=== PATIENT | male | born 1950 | race Caucasian/White ===

== ENCOUNTER 2016-08-10 03:18 | Emergency (ER) | payer OTHER ==
[~2016-08-10] VITALS: Ht 180.3 cm; Wt 93.4 kg
[~2016-08-10 03:18] MED LIST: ALBUTEROL SULF8.5 GM INH; AMOXICILLIN500 MG ORAL; ANTIVERT25 MG ORAL; ASPIRIN325 MG PO; ASPIRIN81 MG ORAL; AUGMENTIN 500M500 MG PO; COGENTIN1 MG PO; COUMADIN5 MG PO; FAMOTIDINE20 MG ORAL; FERROUS SULFAT325 MG PO; FIORICET1 EA PO; FISH OIL300 M1 PO; GENTAK5 ML BOTH EYES; Iron; LIBRIUM10 MG ORAL; LIPITOR80 MG ORAL; NEOSPORIN OINT30 GM EXT; NORCO 5-325 TA1 EACH ORAL; NORCO 5-325 TA1 EACH PO; OMEPRAZOLE40 M1 ORAL; ONDANSETRON ODT4 MG ORAL; PEPCID AC10 MG PO; PEPCID20 MG ORAL; PEPCID40 MG PO; PRILOSEC20 MG ORAL; PRILOSEC20 MG PO; PRILOSEC40 MG PO; PROAIR HFA8.5 GM INH; RANITIDINE HCL150 MG ORAL; TYLENOL325 MG ORAL; VICODIN 5-3001 EACH ORAL; VICODIN 5-5001 EACH PO; Warfarin RX monitoring MISC; ZANTAC150 MG ORAL; ZOFRAN ODT4 MG ORAL; [UNRECOGNIZED DRUG - OTHER] PO; pepcid; stelazine
[2016-08-10] MEDS ORDERED: XARELTO10 MG ORAL (03:31)
--- NOTE | 2016-08-10 04:07 | Emergency Room Report ---
History of Present Illness General Chief Complaint: Medication Refill Source: Patient Present Illness HPI Is a 66-year-old male well-known to me. He has a history of of her hernia, COPD , previous blood clot and also chronic pain. He presents with chief complaint of feeding his blood thinner [facility] and need to be a blood thinner. He said his unit secy and integument his dinner tonight. He has no other complaint. No nausea no vomiting. No fever or chills. No short of breath. Allergies: Coded Allergies: FLUPHENAZINE (Unverified Allergy, Unknown, 07/06/15) FLUPHENAZINE ENANTHATE (Verified Allergy, Unknown, 08/10/16) FLUPHENAZINE HCL (Verified Allergy, Unknown, 08/10/16) HALOPERIDOL (Verified Allergy, Unknown, 08/10/16) HALOPERIDOL LACTATE (Verified Allergy, Unknown, 11/18/14) IBUPROFEN (Verified Allergy, Unknown, 11/18/14) NIACIN (Unverified Allergy, Unknown, 07/06/15) Patient History Past Medical History: see triage record, old chart reviewed, psych hx Past Surgical History: other Pertinent Family History: other Social History: Reports: smoking Immunizations: other Reviewed Nursing Documentation: PMH: Agreed, PSxH: Agreed Nursing Documentation-PMH Hx Cardiac Problems: Yes Hx Hypertension: Yes Hx Asthma: No Hx COPD: No Hx Diabetes: No Hx Cancer: Yes - lung cx, stomach cx Hx Dialysis: No Hx Neurological Problems: Yes - migraine headaches Hx Cerebrovascular Accident: No Hx Seizures: Yes Review of Systems Eye: Denies: blurred vision, eye pain ENT: Denies: ear pain, nose congestion, throat swelling Respiratory: Denies: cough, shortness of breath Cardiovascular: Denies: chest pain, palpitations Gastrointestinal: Denies: abdominal pain, diarrhea, nausea, vomiting Musculoskeletal: Denies: back pain, joint pain Skin: Denies: rash Neurological: Denies: headache, numbness Endocrine: Denies: increased thirst, increased urine Hematologic/Lymphatic: Denies: easy bruising All Other Systems: negative except mentioned in HPI Physical Exam Vital Signs Date Time Temp Pulse Resp B/P Pulse Ox O2 Delivery O2 Flow Rate FiO2 08/10/16 03:23 98.2 83 16 138/95 99 vitals normal Sp02 EP Interpretation: reviewed, normal General Appearance: well appearing, no apparent distress, alert Head: normocephalic, atraumatic Eyes: bilateral eye EOMI, bilateral eye PERRL ENT: hearing grossly normal, normal pharynx Neck: full range of motion, supple, no meningismus Respiratory: chest non-tender, lungs clear, normal breath sounds Cardiovascular #1: regular rate, rhythm, no murmur Gastrointestinal: normal bowel sounds, non tender, no mass, no organomegaly, no bruit, non-distended Musculoskeletal: back normal, gait/station normal, normal range of motion Psychiatric: mood/affect normal Skin: warm/dry Medical Decision Making Diagnostic Impression: Primary Impression: Encounter for medication refill ER Course Patient presents with chief complaint of needing blood thinner. He's been here several times and his INR has always been subtherapeutic or normal. I see no need for administration of Coumadin right now. He can followup to be done by his unit secy/family at the [facility]. We'll discharge home. Last Vital Signs Date Time Temp Pulse Resp B/P Pulse Ox O2 Delivery O2 Flow Rate FiO2 08/10/16 03:23 98.2 83 16 138/95 99 Status: improved Disposition: HOME, SELF-CARE Condition: Stable Patient Instructions: Medicine Refill at the Emergency Department Additional Instructions: Go to your DrPreet for your Coumadin/blood thinner. Take your medication. All of as scheduled. Return if worse. ALPESH CALDWELL M.D. Aug 10, 2016 04:07
[2016-08-10 04:23] VITALS: BP 138/95
== END 2016-08-10 04:15 | disposition home or self-care (01) ==
LOC: EMR 03:32
DX: Z76.0 Encounter for issue of repeat prescription (principal); I10 Essential (primary) hypertension; Z85.118 Personal history of other malignant neoplasm of bronchus and lung; Z85.028 Personal history of other malignant neoplasm of stomach; F17.200 Nicotine dependence, unspecified, uncomplicated; Z88.6 Allergy status to analgesic agent; Z88.8 Allergy status to other drugs, medicaments and biological substances
CPT/HCPCS: 99282

== ENCOUNTER 2016-08-21 22:23 | Emergency (ER) | payer OTHER ==
[~2016-08-21] VITALS: Ht 180.3 cm; Wt 93.4 kg
[~2016-08-21 22:23] MED LIST changes: +XARELTO10 MG ORAL
[2016-08-21 22:40] VITALS: BP 130/62
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
[2016-08-21 22:52] VITALS: BP 136/68
== END 2016-08-21 22:55 | disposition home or self-care (01) ==
LOC: EMR 22:44
DX: M54.6 Pain in thoracic spine (principal); F22 Delusional disorders; I10 Essential (primary) hypertension; Z88.6 Allergy status to analgesic agent; Z88.8 Allergy status to other drugs, medicaments and biological substances; J44.9 Chronic obstructive pulmonary disease, unspecified; F20.9 Schizophrenia, unspecified; Z85.118 Personal history of other malignant neoplasm of bronchus and lung; Z85.028 Personal history of other malignant neoplasm of stomach
CPT/HCPCS: 99282

== ENCOUNTER 2016-09-02 00:27 | Emergency (ER) | payer OTHER ==
[~2016-09-02] VITALS: Ht 180.3 cm; Wt 93.4 kg
[2016-09-02 00:43] VITALS: BP 163/88
[2016-09-02] MEDS ORDERED: Acetaminophen 500mg (ES) tab ORAL ONE (00:45)
--- NOTE | 2016-09-02 00:50 | Emergency Room Report ---
History of Present Illness General Chief Complaint: Headache Source: Patient Present Illness HPI This is a 66-year-old male who is well-known to this ER. He also visit multiple ER is in that area. He presents with chief complaint of headache. He said he having a migraine. Throbbing in nature. 04/14. He said he needs [place]. Denies any other complaint. No nausea no vomiting. No chest pain. No fever or chills. Similar symptom in the past. Diffuse in nature. Allergies: Coded Allergies: FLUPHENAZINE (Unverified Allergy, Unknown, 07/06/15) FLUPHENAZINE ENANTHATE (Verified Allergy, Unknown, 08/10/16) FLUPHENAZINE HCL (Verified Allergy, Unknown, 08/10/16) HALOPERIDOL (Verified Allergy, Unknown, 08/10/16) HALOPERIDOL LACTATE (Verified Allergy, Unknown, 11/18/14) IBUPROFEN (Verified Allergy, Unknown, 11/18/14) NIACIN (Unverified Allergy, Unknown, 07/06/15) Patient History Past Medical History: see triage record, old chart reviewed, DM, HTN, psych hx Past Surgical History: other Pertinent Family History: other Social History: Reports: smoking Immunizations: other Reviewed Nursing Documentation: PMH: Agreed, PSxH: Agreed Nursing Documentation-PMH Hx Cardiac Problems: Yes Hx Hypertension: Yes Hx Asthma: No Hx COPD: No Hx Diabetes: No Hx Cancer: Yes - lung cx, stomach cx Hx Dialysis: No Hx Neurological Problems: Yes - migraine headaches Hx Cerebrovascular Accident: No Hx Seizures: Yes Review of Systems Eye: Denies: blurred vision, eye pain ENT: Denies: ear pain, nose congestion, throat swelling Respiratory: Denies: cough, shortness of breath Cardiovascular: Denies: chest pain, palpitations Gastrointestinal: Denies: abdominal pain, diarrhea, nausea, vomiting Musculoskeletal: Denies: back pain, joint pain Skin: Denies: rash Neurological: Reports: headache, Denies: numbness Endocrine: Denies: increased thirst, increased urine Hematologic/Lymphatic: Denies: easy bruising All Other Systems: negative except mentioned in HPI Physical Exam Vital Signs Date Time Temp Pulse Resp B/P Pulse Ox O2 Delivery O2 Flow Rate FiO2 09/02/16 00:40 97.2 96 18 163/88 97 Room Air vitals hypertension Sp02 EP Interpretation: reviewed, normal General Appearance: well appearing, no apparent distress, alert Head: normocephalic, atraumatic Eyes: bilateral eye EOMI, bilateral eye PERRL ENT: hearing grossly normal, normal pharynx Neck: full range of motion, supple, no meningismus Respiratory: chest non-tender, lungs clear, normal breath sounds Cardiovascular #1: regular rate, rhythm, no murmur Gastrointestinal: normal bowel sounds, non tender, no mass, no organomegaly, no bruit, non-distended Musculoskeletal: back normal, gait/station normal, normal range of motion Psychiatric: mood/affect normal Skin: warm/dry Medical Decision Making Diagnostic Impression: Primary Impression: Headache Qualified Codes: G44.209 - Tension-type headache, unspecified, not intractable Additional Impressions: Hypertension Qualified Codes: I10 - Essential (primary) hypertension Opioid dependence ER Course Patient with headache. He is here all the time with multiple different pain complaint. No evidence of meningitis, bleed, CVA or TIA. We'll discharge home. Last Vital Signs Date Time Temp Pulse Resp B/P Pulse Ox O2 Delivery O2 Flow Rate FiO2 09/02/16 00:43 97.2 82 18 163/88 97 Room Air Status: improved Disposition: HOME, SELF-CARE Condition: Stable Patient Instructions: General Headache Without Cause Additional Instructions: Followup with your DrPreet in 7 days. Return if worse. ALPESH CALDWELL M.D. Sep 02, 2016 00:50
== END 2016-09-02 01:05 | disposition home or self-care (01) ==
LOC: EMR 01:04
DX: R51 Headache (principal); I10 Essential (primary) hypertension; E11.9 Type 2 diabetes mellitus without complications; Z85.118 Personal history of other malignant neoplasm of bronchus and lung; Z85.028 Personal history of other malignant neoplasm of stomach; Z86.69 Personal history of other diseases of the nervous system and sense organs; F17.200 Nicotine dependence, unspecified, uncomplicated; Z88.8 Allergy status to other drugs, medicaments and biological substances; Z88.6 Allergy status to analgesic agent
CPT/HCPCS: 99283

== ENCOUNTER 2016-09-27 19:05 | Emergency (ER) | payer OTHER ==
[~2016-09-27] VITALS: Ht 180.3 cm; Wt 93.4 kg
[2016-09-27 19:22] VITALS: BP 127/74
[2016-09-27] MEDS ORDERED: Thiamine HCl 100 MG in D5W 55 ML IVPB STA (19:34)
[2016-09-27] MEDS ORDERED: DiphenhydrAMINE 50mg/ml Inj IVP ONE (19:45)
[2016-09-27] MEDS ORDERED: Metoclopramide 10mg/2ml Inj IVP ONE (19:45)
[2016-09-27] MEDS ORDERED: Thiamine HCl 100mg/ml Inj ONE (20:41)
[2016-09-27 21:11] LABS: TROPONIN I < 0.30 ng/mL (<=0.30)
[2016-09-27 21:12] LABS: ACETAMINOPHEN < 10 ug/mL (10-30); ALANINE AMINOTRANSFERASE 17 U/L (3-41); ALBUMIN/GLOBULIN RATIO 1.4 (1.0-2.7); ALCOHOL 44 mg/dL; ANION GAP 19 (5-15); ASPARTATE AMINO TRANSFERASE 25 U/L (5-40); CALCIUM 9.1 mg/dL (8.6-10.2); CARBON DIOXIDE 24 mEQ/L (20-30); CHLORIDE 95 mEQ/L (98-107); GLOMERULAR FILTRATION RATE > 60 mL/min (>60); HEMOLYSIS 4; LIPASE 34 U/L (< 60); POTASSIUM 3.9 mEQ/L (3.4-4.9); SODIUM 138 mEQ/L (135-145); TOTAL PROTEIN 7.1 g/dL (6.6-8.7)
[2016-09-27 21:16] LABS: REFLEX LACTIC ACID YES OR NO YES
[2016-09-27 21:25] LABS: BASOPHILS % (AUTO) 0.8 % (0.0-2.0); EOSINOPHILS % (AUTO) 2.6 % (0.0-3.0); LYMPHOCYTES % (AUTO) 14.7 % (20.0-45.0); MEAN CORPUSCULAR HEMOGLOBIN 23.3 PG (27.0-31.0); MEAN CORPUSCULAR HGB CONC 30.6 G/DL (32.0-36.0); MEAN CORPUSCULAR VOLUME 76 FL (80-99); NEUTROPHILS % (AUTO) 74.9 % (45.0-75.0); PLATELET COUNT 309 K/UL (150-450); RED BLOOD COUNT 4.48 M/UL (4.70-6.10); RED CELL DISTRIBUTION WIDTH 16.5 % (11.6-14.8); WHITE BLOOD COUNT 6.9 K/UL (4.8-10.8)
[2016-09-27 21:29] LABS: KETONES,URINE NEGATIVE (NEGATIVE); LEUKOCYTE ESTERASE ,URINE NEGATIVE (NEGATIVE); NITRITE,URINE NEGATIVE (NEGATIVE); PH,URINE 6 (4.5-8.0); PROTEIN,URINE NEGATIVE (NEGATIVE); UROBILINOGEN,URINE NORMAL MG/DL (0.0-1.0)
[2016-09-27 21:30] LABS: APPEARANCE,URINE CLEAR
[2016-09-27 21:46] VITALS: BP 128/84
--- NOTE | 2016-09-27 22:40 | Emergency Room Report ---
History of Present Illness General Chief Complaint: General Complaint Source: Patient, Medical Record Present Illness HPI The patient presents feeling like he is dying. He did drink a lot of alcohol last few days. He has chest pain vomiting some loose stools no fevers or chills. He's been seen here multiple times in the past with GERD and gastritis. He denies any seizures, vomiting, hematemesis, melena, dysuria, abdominal pain. He also denies any head trauma, extremity pain, swelling. The patient denies suicidal or homicidal ideation. He denies headache. He does feel some dizziness. Allergies: Coded Allergies: FLUPHENAZINE (Unverified Allergy, Unknown, 07/06/15) FLUPHENAZINE ENANTHATE (Verified Allergy, Unknown, 08/10/16) FLUPHENAZINE HCL (Verified Allergy, Unknown, 08/10/16) HALOPERIDOL (Verified Allergy, Unknown, 08/10/16) HALOPERIDOL LACTATE (Verified Allergy, Unknown, 11/18/14) IBUPROFEN (Verified Allergy, Unknown, 11/18/14) NIACIN (Unverified Allergy, Unknown, 07/06/15) Patient History Past Medical History: see triage record Social History: Reports: alcohol use, smoking Social History Narrative [place] Reviewed Nursing Documentation: PMH: Agreed, PSxH: Agreed Nursing Documentation-PMH Hx Cardiac Problems: Yes Hx Hypertension: Yes Hx Asthma: No Hx COPD: No Hx Diabetes: No Hx Cancer: Yes - lung cx, stomach cx Hx Dialysis: No Hx Neurological Problems: Yes - migraine headaches Hx Cerebrovascular Accident: No Hx Seizures: Yes Review of Systems All Other Systems: negative except mentioned in HPI Physical Exam Vital Signs Date Time Temp Pulse Resp B/P Pulse Ox O2 Delivery O2 Flow Rate FiO2 09/27/16 19:13 97.9 98 16 127/74 97 Room Air Sp02 EP Interpretation: reviewed, normal General Appearance: well appearing, no apparent distress, GCS 15 - eyes closed Head: normocephalic Eyes: bilateral eye PERRL, bilateral eye Scleral Injection ENT: moist mucus membranes Neck: supple Respiratory: chest non-tender, lungs clear, normal breath sounds Cardiovascular #1: regular rate, rhythm Cardiovascular #2: 2+ radial (R) Gastrointestinal: normal inspection, normal bowel sounds, non tender, no mass, non-distended Musculoskeletal: back normal, gait/station normal, normal range of motion Neurologic: alert, oriented x3, motor strength/tone normal, DTRs symmetric, sensory intact, normal gait, speech normal Psychiatric: mood/affect normal Skin: normal inspection, warm/dry Medical Decision Making Diagnostic Impression: Primary Impression: Abdominal pain Additional Impressions: Alcohol abuse Alcohol intoxication ER Course The patient presents after drinking alcohol and feeling ill. Differential includes acute intoxication, electrolyte imbalance, gastritis, peptic ulcer disease, GERD most others appear to is no evidence of head trauma. The patient will be treated with IV hydration and also Pepcid, Zofran. He'll also be given a GI cocktail. EKG, labs and chest x-ray will be obtained. EKG is unremarkable. Chest x-ray shows no infiltrates. Labs were remarkable for positive blood alcohol. The patient is improved after treatment. He was still complaining of chest pain however the GI cocktail he does be review ordered. He had relief after he got to us. The patient is stable for outpatient observation and treatment. Laboratory Tests Test 09/27/16 20:35 09/27/16 22:48 White Blood Count 6.9 K/UL (4.8-10.8) Red Blood Count 4.48 M/UL (4.70-6.10) L Hemoglobin 10.4 G/DL (14.2-18.0) L Hematocrit 34.1 % (42.0-52.0) L Mean Corpuscular Volume 76 FL (80-99) L Mean Corpuscular Hemoglobin 23.3 PG (27.0-31.0) L Mean Corpuscular Hemoglobin Concent 30.6 G/DL (32.0-36.0) L Red Cell Distribution Width 16.5 % (11.6-14.8) H Platelet Count 309 K/UL (150-450) Mean Platelet Volume 6.0 FL (6.5-10.1) L Neutrophils (%) (Auto) 74.9 % (45.0-75.0) Lymphocytes (%) (Auto) 14.7 % (20.0-45.0) L Monocytes (%) (Auto) 7.0 % (1.0-10.0) Eosinophils (%) (Auto) 2.6 % (0.0-3.0) Basophils (%) (Auto) 0.8 % (0.0-2.0) Prothrombin Time 10.0 SEC (9.30-11.50) Prothrombin Time INR 1.0 (0.9-1.1) PTT 27 SEC (23-33) Urine Color Pale yellow Urine Appearance Clear Urine pH 6 (4.5-8.0) Urine Specific [place] 1.010 (1.005-1.035) Urine Protein Negative (NEGATIVE) Urine Glucose (UA) 1+ (NEGATIVE) H Urine Ketones Negative (NEGATIVE) Urine Occult Blood Negative (NEGATIVE) Urine Nitrite Negative (NEGATIVE) Urine Bilirubin Negative (NEGATIVE) Urine Urobilinogen Normal MG/DL (0.0-1.0) Urine Leukocyte Esterase Negative (NEGATIVE) Sodium Level 138 mEQ/L (135-145) Potassium Level 3.9 mEQ/L (3.4-4.9) Chloride Level 95 mEQ/L (98-107) L Carbon Dioxide Level 24 mEQ/L (20-30) Anion Gap 19 (5-15) H Blood Urea Nitrogen 13 mg/dL (7-23) Creatinine 1.0 mg/dL (0.7-1.2) Estimate Glomerular Filtration Rate > 60 mL/min (>60) Glucose Level 156 mg/dL (74-106) H Lactic Acid Level 2.00 mmol/L (0.66-2.22) 1.20 mmol/L (0.66-2.22) Calcium Level 9.1 mg/dL (8.6-10.2) Total Bilirubin < 0.2 mg/dL (0.0-1.2) Aspartate Amino Transferase (AST) 25 U/L (5-40) Alanine Aminotransferase (ALT) 17 U/L (3-41) Alkaline Phosphatase 72 U/L (40-129) Total Creatine Kinase 519 U/L (38-174) H Troponin I < 0.30 ng/mL (<=0.30) Total Protein 7.1 g/dL (6.6-8.7) Albumin 4.2 g/dL (3.5-5.2) Globulin 2.9 g/dL Albumin/Globulin Ratio 1.4 (1.0-2.7) Lipase 34 U/L (< 60) Salicylates Level < 1 mg/dL (10-30) L Urine Opiates Screen Negative (NEGATIVE) Acetaminophen Level < 10 ug/mL (10-30) L Urine Barbiturates Screen Negative (NEGATIVE) Phencyclidine (PCP) Screen Negative (NEGATIVE) Urine Amphetamines Screen Negative (NEGATIVE) Urine Benzodiazepines Screen Negative (NEGATIVE) Urine Cocaine Screen Negative (NEGATIVE) Urine Marijuana (THC) Screen Negative (NEGATIVE) Serum Alcohol 44 mg/dL EKG Diagnostic Results Rate: normal Rhythm: NSR ST Segments: no acute changes Rhythm Strip Diag. Results EP Interpretation: yes Rhythm: NSR, no PVC's, no ectopy Chest X-Ray Diagnostic Results EP Interpretation: Yes Findings: no consolidation, no effusion, no pneumothorax, no acute cardiopulmonary disease, other - double density Number of Views: 1 Last Vital Signs Date Time Temp Pulse Resp B/P Pulse Ox O2 Delivery O2 Flow Rate FiO2 09/28/16 00:58 97.9 87 21 126/77 95 Room Air 74 Status: improved Disposition: HOME, SELF-CARE Condition: Improved Scripts Acetaminophen (Tylenol) 325 Mg Tablet 650 MG ORAL Q6H Y for Prn Pain/Headache/Temp > 101, #30 TAB 0 Refills Prov: Bi Marti M.D. 09/28/16 Mag Hydrox/Al Hydrox/Simeth (MAALOX MAXIMUM STRENGTH SUSP) 355 Ml Oral.susp 30 ML PO Q6HR, #355 ML Prov: Bi Marti M.D. 09/28/16 Famotidine (PEPCID) 20 Mg Tablet 20 MG ORAL DAILY, #30 TAB 0 Refills Prov: Bi Marti M.D. 09/28/16 Referrals: NOT CHOSEN AMANDA/,REFERRING (PCP) Bi Marti M.D. Sep 27, 2016 22:40
[2016-09-27] MEDS ORDERED: GI Cocktail 120ml ORAL STA (22:42)
[2016-09-27 23:09] VITALS: BP 126/77
[2016-09-27] MEDS ORDERED: Mylanta II UD 30ml ORAL ONE (23:15)
[2016-09-27] MEDS ORDERED: Lidocaine 2% Visc 15ml soln ORAL ONE (23:15)
[2016-09-27] MEDS ORDERED: Dicyclomine HCl 10mg/5ml oral soln ORAL ONE (23:15)
[2016-09-28] MEDS ORDERED: MAALOX MAXIMUM355 M1 PO (00:17)
[2016-09-28] MEDS ORDERED: PEPCID20 MG ORAL (00:17)
[2016-09-28] MEDS ORDERED: TYLENOL325 MG ORAL (00:17)
[2016-09-28 00:57] VITALS: BP 138/90
[2016-09-28 00:58] VITALS: BP 126/77
--- NOTE | 2016-09-28 11:13 | Diagnostic Imaging Report ---
Indication: Chest pain Technique: One view of the chest Comparison: 07/13/2016 Findings: Large retrocardiac opacity is again demonstrated, previously demonstrated to represent a large hiatal hernia. Lungs and pleural spaces are clear. Heart size is borderline enlarged Impression: No acute process Borderline cardiomegaly Large hiatal hernia This agrees with the preliminary interpretation provided by the emergency room physician
--- NOTE | 2016-09-29 03:01 | Cardiology Report ---
APPROVED REPORT EKG Measurement Heart [id number] Normal sinus rhythm Normal ECG
== END 2016-09-28 00:59 | disposition home or self-care (01) ==
LOC: EMR 20:07
DX: R10.9 Unspecified abdominal pain (principal); I10 Essential (primary) hypertension; F17.200 Nicotine dependence, unspecified, uncomplicated; F10.129 Alcohol abuse with intoxication, unspecified; Z85.118 Personal history of other malignant neoplasm of bronchus and lung; R07.9 Chest pain, unspecified; Z85.028 Personal history of other malignant neoplasm of stomach
CPT/HCPCS: 36415; 71010; 80053; 80300; 81003; 82550; 83605; 83690; 84484; 85025; 85610; 85730; 93005; 96360; 96361; 96374; 96375; 99284; G0480; J1200; J2405; J2765; 80329

== ENCOUNTER 2016-10-07 18:47 | Emergency (ER) | payer OTHER ==
[~2016-10-07] VITALS: Ht 180.3 cm; Wt 93.4 kg
[~2016-10-07 18:47] MED LIST changes: +MAALOX MAXIMUM355 M1 PO
[2016-10-07 19:04] VITALS: BP 128/71
--- NOTE | 2016-10-07 19:25 | Emergency Room Report ---
History of Present Illness General Chief Complaint: General Complaint Source: Patient Present Illness HPI 66-year-old male presents emergency department complaining of left-sided chest pain that radiates to the left arm x2 hours constant in nature. Patient also reports intermittent dizziness upon standing too quickly and mild shortness of breath. Patient states he has a history of bronchitis, PEs for which she takes a relative for. She states that he has had episodes of dizziness in the past and that he also has a history of high blood pressure at that on occasion due to his medications will drop low. She does not know the name of the anti- hypertensive medication that he takes. Patient denies recent fall or head injury patient reports episodes of vomiting today denies blood in the vomit. Patient denies abdominal pain, he denies fevers and reports chills. Denies CP, Palpitations, LOC, AMS, dizziness, Changes in Vision, Sensation, paresthesias, or a sudden severe headache. Allergies: Coded Allergies: FLUPHENAZINE (Unverified Allergy, Unknown, 07/06/15) FLUPHENAZINE ENANTHATE (Verified Allergy, Unknown, 08/10/16) FLUPHENAZINE HCL (Verified Allergy, Unknown, 08/10/16) HALOPERIDOL (Verified Allergy, Unknown, 08/10/16) HALOPERIDOL LACTATE (Verified Allergy, Unknown, 11/18/14) IBUPROFEN (Verified Allergy, Unknown, 11/18/14) NIACIN (Unverified Allergy, Unknown, 07/06/15) Patient History Past Medical History: see triage record Past Surgical History: none Pertinent Family History: none Immunizations: UTD Reviewed Nursing Documentation: PMH: Agreed, PSxH: Agreed Nursing Documentation-PMH Past Medical History: No History, Except For Hx Cardiac Problems: Yes Hx Hypertension: Yes Hx Asthma: No Hx COPD: No Hx Diabetes: No Hx Cancer: Yes - lung (lobectomy) stomach Hx Gastrointestinal Problems: Yes - hiatal hernia (inoperable) Hx Dialysis: No History Of Psychiatric Problem: Yes - PTSD schizophrenia Hx Neurological Problems: Yes - migraine headaches Hx Cerebrovascular Accident: No Hx Seizures: Yes Review of Systems All Other Systems: negative except mentioned in HPI Physical Exam Vital Signs Date Time Temp Pulse Resp B/P Pulse Ox O2 Delivery O2 Flow Rate FiO2 10/07/16 19:02 98.2 88 16 128/71 100 Room Air Sp02 EP Interpretation: reviewed, normal General Appearance: no apparent distress, alert, GCS 15, non-toxic Head: normocephalic, atraumatic Eyes: bilateral eye PERRL, bilateral eye normal inspection ENT: hearing grossly normal, normal pharynx, no angioedema, normal voice Neck: full range of motion, supple/symm/no masses Respiratory: chest non-tender, lungs clear, normal breath sounds, speaking full sentences, wheezing - scant expiratory wheezez Cardiovascular #1: regular rate, rhythm, no edema, gallop/S4 Cardiovascular #2: 2+ dorsalis pedis (R), 2+ dorsalis pedis (L) Gastrointestinal: normal bowel sounds, non tender, soft, no guarding, no rebound Rectal: deferred Genitourinary: normal inspection, no CVA tenderness Musculoskeletal: back normal, gait/station normal, normal range of motion, non- tender, no calf tenderness Neurologic: alert, oriented x3, responsive, motor strength/tone normal, sensory intact, cerebellar normal, normal gait, speech normal, no pronator, other - negative Rhomberg Psychiatric: judgement/insight normal, memory normal, mood/affect normal, no suicidal/homicidal ideation Skin: normal color, no rash, warm/dry, well hydrated Lymphatic: no adenopathy Medical Decision Making PA Attestation Dr. Peralta is my supervising Physician whom patient management has been discussed with. Diagnostic Impression: Primary Impression: Bronchitis Additional Impression: Acute gastritis ER Course 66-year-old male presents emergency department complaining of left-sided chest pain that radiates to the left arm x2 hours constant in nature. Patient also reports intermittent dizziness upon standing too quickly and mild shortness of breath. Patient states he has a history of bronchitis, PEs for which she takes a relative for. he states that he has had episodes of dizziness in the past and that he also has a history of high blood pressure at that on occasion due to his medications will drop low. he does not know the name of the anti- hypertensive medication that he takes. Patient denies recent fall or head injury patient reports episodes of vomiting today denies blood in the vomit. Patient denies abdominal pain, he denies fevers and reports chills. Denies CP, Palpitations, LOC, AMS, dizziness, Changes in Vision, Sensation, paresthesias, or a sudden severe headache. Ddx considered but are not limited to RI, pneumonia, contusion, costochondritis , bronchitis, PE, ACS, Shoulder strain, Chest wall contusion. aortic dissection. Vital signs: are WNL, pt. is afebrile H&PE are most consistent with bronchitis will do EKG, and r/o dehydration. ORDERS: - EK BPM NSR with prolonged QT, RBB, no acute ST changes- per interpretation by Dr. Peralta. -Orthostatic VS: Negative Orthostatics : Laying : 170/85 HR is 106, Sittin/91 HR is 82, and Standin/88 HR is 87. ED INTERVENTIONS: - Albuterol Nebulized -10mg Reglan PO DISCHARGE: At this time pt. is stable for d/c to home. Will provide printed patient care instructions, and any necessary prescriptions. Care plan and follow up instructions have been discussed with the patient prior to discharge. EKG Diagnostic Results Rate: normal - 82 Rhythm: NSR ST Segments: no acute changes ASA given to the pt in ED: No PA Scribe Text prolonged QT, RBB per interpretation by Dr. Peralta. Last Vital Signs Date Time Temp Pulse Resp B/P Pulse Ox O2 Delivery O2 Flow Rate FiO2 10/07/16 19:02 98.2 88 16 128/71 100 Room Air Disposition: HOME, SELF-CARE Condition: Stable Scripts Metoclopramide Hcl* (REGLAN*) 10 Mg Tablet 10 MG ORAL THREE TIMES A DAY for 2 Days, #6 TAB Prov: Chinyere Amaya 10/07/16 Albuterol Sulfate* (ALBUTEROL SULFATE MDI*) 8.5 Gm Hfa.aer.ad 2 PUFF INH Q3H, #1 INH 0 Refills Prov: Chinyere Amaya 10/07/16 Patient Instructions: Acute Bronchitis, [id number] Additional Instructions: Take medications as directed. Follow up with PCP in 3-5 days Return sooner to ED if new symptoms occur, or current symptoms become worse. - Please note that this Emergency Department Report was dictated using [employer] technology software, occasionally this can lead to erroneous entry secondary to interpretation by the dictation equipment. Chinyere Amaya Oct 07, 2016 19:25
[2016-10-07] MEDS ORDERED: Albuterol ud Inhalation HHN ONE (20:00)
[2016-10-07] MEDS ORDERED: Metoclopramide 10mg/10ml Liq ORAL ONE (20:00)
[2016-10-07 20:08] VITALS: BP 149/91
[2016-10-07 20:18] VITALS: BP 139/84
[2016-10-07] MEDS ORDERED: REGLAN10 MG ORAL (20:18)
[2016-10-07] MEDS ORDERED: ALBUTEROL SULF8.5 GM INH (20:18)
--- NOTE | 2016-10-12 16:13 | Cardiology Report ---
APPROVED REPORT EKG Measurement Heart [id number] Normal sinus rhythm Incomplete right bundle branch block Prolonged QT Abnormal ECG
== END 2016-10-07 20:18 | disposition home or self-care (01) ==
LOC: EMR 19:38
DX: J40 Bronchitis, not specified as acute or chronic (principal); K29.70 Gastritis, unspecified, without bleeding; F43.10 Post-traumatic stress disorder, unspecified; F20.9 Schizophrenia, unspecified; I10 Essential (primary) hypertension; Z85.118 Personal history of other malignant neoplasm of bronchus and lung; Z85.028 Personal history of other malignant neoplasm of stomach; Z88.6 Allergy status to analgesic agent; Z88.8 Allergy status to other drugs, medicaments and biological substances
CPT/HCPCS: 93005; 94640; 94664; 99284

== ENCOUNTER 2016-10-30 21:20 | Emergency (ER) | payer OTHER ==
[~2016-10-30] VITALS: Ht 180.3 cm; Wt 90.7 kg
[~2016-10-30 21:20] MED LIST changes: +REGLAN10 MG ORAL
[2016-10-30 23:10] VITALS: BP 130/82
[2016-10-30 23:18] LABS: BASOPHILS % (AUTO) 1.2 % (0.0-2.0); EOSINOPHILS % (AUTO) 1.7 % (0.0-3.0); LYMPHOCYTES % (AUTO) 19.8 % (20.0-45.0); MEAN CORPUSCULAR HEMOGLOBIN 22.5 PG (27.0-31.0); MEAN CORPUSCULAR HGB CONC 30.3 G/DL (32.0-36.0); MEAN CORPUSCULAR VOLUME 74 FL (80-99); MONOCYTES % (AUTO) 8.1 % (1.0-10.0); NEUTROPHILS % (AUTO) 69.2 % (45.0-75.0); PLATELET COUNT 291 K/UL (150-450); RED BLOOD COUNT 4.34 M/UL (4.70-6.10); WHITE BLOOD COUNT 5.9 K/UL (4.8-10.8)
[2016-10-30 23:41] LABS: ANION GAP 19 (5-15); CALCIUM 9.1 mg/dL (8.6-10.2); CARBON DIOXIDE 24 mEQ/L (20-30); CHLORIDE 100 mEQ/L (98-107); GLOMERULAR FILTRATION RATE > 60 mL/min (>60); HEMOLYSIS 1; SODIUM 143 mEQ/L (135-145); TROPONIN I < 0.30 ng/mL (<=0.30)
[2016-10-31] VITALS: BP 128/84
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
== END 2016-10-31 | disposition home or self-care (01) ==
LOC: EMR 22:02
DX: R53.1 Weakness (principal); R07.89 Other chest pain; I10 Essential (primary) hypertension; Z85.118 Personal history of other malignant neoplasm of bronchus and lung
CPT/HCPCS: 36415; 80048; 84484; 85025; 99283

== ENCOUNTER 2016-12-21 06:04 | Emergency (ER) | payer OTHER ==
[~2016-12-21] VITALS: Ht 180.3 cm; Wt 86.2 kg
[2016-12-21 06:15] VITALS: BP 168/67
--- NOTE | 2016-12-21 06:41 | Emergency Room Report ---
History of Present Illness General Chief Complaint: Generalized Weakness Source: Patient, EMS Present Illness HPI Patient was brought in by paramedics Was found laying in the street Upon arrival the patient reports that he is hungry Denies any headache or visual changes there was initially a report of general weakness However he denies that Denies any vomiting or diarrhea Patient was upset that he was brought to the hospital Her porch last he remembers was going to sleep and then being brought to the hospital Denies any fall or trauma as any chest pain or shortness of breath Allergies: Coded Allergies: FLUPHENAZINE (Unverified Allergy, Unknown, 07/06/15) FLUPHENAZINE ENANTHATE (Verified Allergy, Unknown, 08/10/16) FLUPHENAZINE HCL (Verified Allergy, Unknown, 08/10/16) HALOPERIDOL (Verified Allergy, Unknown, 08/10/16) HALOPERIDOL LACTATE (Verified Allergy, Unknown, 11/18/14) IBUPROFEN (Verified Allergy, Unknown, 11/18/14) NIACIN (Unverified Allergy, Unknown, 07/06/15) Patient History Past Medical History: see triage record Pertinent Family History: none Reviewed Nursing Documentation: PMH: Agreed, PSxH: Agreed Nursing Documentation-PMH Hx Hypertension: Yes Hx Asthma: No Hx COPD: No Hx Diabetes: No Hx Cancer: Yes - lung (lobectomy) stomach Hx Gastrointestinal Problems: Yes - hiatal hernia (inoperable) Hx Dialysis: No Hx Neurological Problems: Yes - migraine headaches Hx Cerebrovascular Accident: No Hx Seizures: Yes Review of Systems All Other Systems: negative except mentioned in HPI Physical Exam Vital Signs Date Time Temp Pulse Resp B/P Pulse Ox O2 Delivery O2 Flow Rate FiO2 12/21/16 06:08 98.1 90 18 151/78 98 Room Air Sp02 EP Interpretation: reviewed, normal General Appearance: no apparent distress Head: normocephalic, atraumatic Eyes: bilateral eye EOMI, bilateral eye PERRL ENT: hearing grossly normal, normal pharynx, TMs + canals normal, uvula midline Neck: full range of motion, supple, no meningismus, no bony tend Respiratory: lungs clear, normal breath sounds, no rhonchi, no respiratory distress, no retraction, no accessory muscle use Cardiovascular #1: normal peripheral pulses, regular rate, rhythm, no edema, no gallop, no JVD, no murmur Gastrointestinal: normal bowel sounds, non tender, soft, no mass, no organomegaly, non-distended, no guarding, no hernia, no pulsatile mass, no rebound Musculoskeletal: normal inspection Neurologic: oriented x3, responsive, 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 as tested, motor strength/ tone normal, sensory intact Psychiatric: mood/affect normal Skin: normal color, no rash, warm/dry, palpation normal Lymphatic: normal inspection, no adenopathy Medical Decision Making Diagnostic Impression: Primary Impression: Encounter for medical screening examination Additional Impression: Episode of generalized weakness ER Course At this time the patient is complaint free Hemodynamically stable Patient has recent blood work in the computer system I did not feel required repeat examination Patient asking teeth in the emergency room and resides at a boarding care facility that he will be transferred to [facility] Vital Signs Date Time Temp Pulse Resp B/P Pulse Ox O2 Delivery O2 Flow Rate FiO2 12/21/16 06:15 98.1 87 16 168/67 100 Room Air Status: improved Disposition: HOME, SELF-CARE Condition: Improved Additional Instructions: Patient is provided with the discharge instructions notified to follow up with primary doctor in the next 2-3 days otherwise return to the er with any worsening symptoms. Please note that this report is being documented using [employer] technology. This can lead to erroneous entry secondary to incorrect interpretation by the dictating instrument. COURTNEY CARVER D.O. December 21, 2016 06:41
[2016-12-21 07:51] VITALS: BP 154/92
[2016-12-21 09:40] VITALS: BP 154/92
== END 2016-12-21 08:00 | disposition home or self-care (01) ==
LOC: EDBD 06:04 → EDUNIT# 06:04 → EMR 06:40
DX: R53.1 Weakness (principal); Z13.89 Encounter for screening for other disorder; I10 Essential (primary) hypertension; K44.9 Diaphragmatic hernia without obstruction or gangrene; Z88.8 Allergy status to other drugs, medicaments and biological substances; Z88.6 Allergy status to analgesic agent
CPT/HCPCS: 99282

== ENCOUNTER 2017-04-02 09:48 | Inpatient (IN) | payer OTHER ==
[~2017-04-02] VITALS: Ht 175.3 cm; Wt 72.6 kg
[2017-04-02 09:50] VITALS: BP 152/88
[2017-04-02 10:16] LABS: BASOPHILS % (AUTO) 1.8 % (0.0-2.0); EOSINOPHILS % (AUTO) 2.8 % (0.0-3.0); LYMPHOCYTES % (AUTO) 13.8 % (20.0-45.0); MEAN CORPUSCULAR HEMOGLOBIN 26.7 PG (27.0-31.0); MEAN CORPUSCULAR HGB CONC 30.5 G/DL (32.0-36.0); MEAN CORPUSCULAR VOLUME 88 FL (80-99); MEAN PLATELET VOLUME 6.8 FL (6.5-10.1); MONOCYTES % (AUTO) 9.2 % (1.0-10.0); NEUTROPHILS % (AUTO) 72.4 % (45.0-75.0); PLATELET COUNT 266 K/UL (150-450); RED BLOOD COUNT 4.85 M/UL (4.70-6.10); RED CELL DISTRIBUTION WIDTH 16.9 % (11.6-14.8); WHITE BLOOD COUNT 6.2 K/UL (4.8-10.8)
[2017-04-02 10:33] LABS: ACETAMINOPHEN < 10 ug/mL (10-30); ALANINE AMINOTRANSFERASE 21 U/L (3-41); ALBUMIN/GLOBULIN RATIO 1.6 (1.0-2.7); ALCOHOL < 10 mg/dL; ANION GAP 15 (5-15); ASPARTATE AMINO TRANSFERASE 33 U/L (5-40); CARBON DIOXIDE 25 mEQ/L (20-30); CHLORIDE 104 mEQ/L (98-107); CREATININE 0.9 mg/dL (0.7-1.2); GLOMERULAR FILTRATION RATE > 60 mL/min (>60); HEMOLYSIS 55; POTASSIUM 4.6 mEQ/L (3.4-4.9); SODIUM 144 mEQ/L (135-145); TOTAL PROTEIN 7.3 g/dL (6.6-8.7); TROPONIN I < 0.30 ng/mL (<=0.30)
[2017-04-02 10:39] VITALS: BP 148/87
[2017-04-02 10:43] LABS: CKMB 11.3 ng/mL (< 6.7)
[2017-04-02] MEDS ORDERED: LORazepam Inj 2mg/ml 1ml IV ONE (10:45)
[2017-04-02 11:02] VITALS: BP 117/68
--- NOTE | 2017-04-02 11:18 | Diagnostic Imaging Report ---
Indication: Altered mental status Technique: Contiguous 5 mm thick transaxial imaging of the head obtained in a Siemens Sensation [address] scanner. Soft tissue and bone windows generated. Total Dose length Product (DLP): [address] Dose Index Volume (CTDIvol): 70.38, 0.15 mGy Comparison: none Findings: There is mild prominence of the ventricles, basal cisterns, and cerebral sulci consistent with atrophy. Mild, nonspecific, white matter hypoattenuation is noted throughout the brain consistent with chronic small vessel disease. There is no midline shift, edema, acute hemorrhage, mass effect, or abnormal extra-axial fluid collections. Bones and extra osseous soft tissues are unremarkable. Impression: No acute intracranial bleed, mass effect or edema. Mild atrophy of the brain. Nonspecific white matter hypoattenuation probably due to chronic small vessel disease. The CT scanner at [facility] is accredited by the [employer] and the scans are performed using dose optimization techniques as appropriate to a performed exam including Automatic Exposure control.
[2017-04-02 13:04] VITALS: BP 140/93
--- NOTE | 2017-04-02 13:20 | Consultation ---
History of Present Illness General Chief Complaint: Behavioral Complaint Present Illness HPI 68 yo male with hx of schizophrenia who appears to be homeless. the pt was sleepy and disheveled. the pt is disorganized and delusional. the pt stated that he lives at [facility]. the number was not a working number. the pt is calm and denied using drugs. He didn't reply when I asked in regards to Alcohol. the pt does not endorse si/hi. he may need placement/ Allergies: Coded Allergies: HALOPERIDOL (Verified Allergy, Unknown, 04/02/17) Medication History Miscellaneous Medications Unable to Obtain Medications (Unable To Obtain Meds), (Reported) Patient History History Provided By: Patient Healthcare decision maker Resuscitation status Advanced Directive on File Review of Systems Constitutional: Reports: malaise, weakness Psychiatric: Reports: prior hx, depressed feelings, emotional problems, hallucinations Physical Exam General Appearance: alert, lethargic, confused, thin Neurologic: alert, responsive, disoriented, depressed affect Last 24 Hour Vital Signs Date Time Temp Pulse Resp B/P (MAP) Pulse Ox O2 Delivery O2 Flow Rate FiO2 04/02/17 13:04 70 16 140/93 100 Room Air 04/02/17 11:02 81 16 117/68 100 Room Air 04/02/17 10:39 89 16 148/87 100 Room Air 04/02/17 09:50 97.0 16 152/88 100 Room Air 04/02/17 09:43 97.0 103 16 152/88 100 Room Air Intake and Output 04/02/17 04/03/17 19:00 07:00 Intake Total 0 ml Balance 0 ml Intake Oral 0 ml Laboratory Tests Test 04/02/17 10:00 04/02/17 10:50 White Blood Count 6.2 K/UL (4.8-10.8) Red Blood Count 4.85 M/UL (4.70-6.10) Hemoglobin 13.0 G/DL (14.2-18.0) L Hematocrit 42.5 % (42.0-52.0) Mean Corpuscular Volume 88 FL (80-99) Mean Corpuscular Hemoglobin 26.7 PG (27.0-31.0) L Mean Corpuscular Hemoglobin Concent 30.5 G/DL (32.0-36.0) L Red Cell Distribution Width 16.9 % (11.6-14.8) H Platelet Count 266 K/UL (150-450) Mean Platelet Volume 6.8 FL (6.5-10.1) Neutrophils (%) (Auto) 72.4 % (45.0-75.0) Lymphocytes (%) (Auto) 13.8 % (20.0-45.0) L Monocytes (%) (Auto) 9.2 % (1.0-10.0) Eosinophils (%) (Auto) 2.8 % (0.0-3.0) Basophils (%) (Auto) 1.8 % (0.0-2.0) Sodium Level 144 mEQ/L (135-145) Potassium Level 4.6 mEQ/L (3.4-4.9) Chloride Level 104 mEQ/L (98-107) Carbon Dioxide Level 25 mEQ/L (20-30) Anion Gap 15 (5-15) Blood Urea Nitrogen 17 mg/dL (7-23) Creatinine 0.9 mg/dL (0.7-1.2) Estimat Glomerular Filtration Rate > 60 mL/min (>60) Glucose Level 120 mg/dL (74-106) H Calcium Level 9.0 mg/dL (8.6-10.2) Total Bilirubin 0.6 mg/dL (0.0-1.2) Aspartate Amino Transf (AST/SGOT) 33 U/L (5-40) Alanine Aminotransferase (ALT/SGPT) 21 U/L (3-41) Alkaline Phosphatase 67 U/L (40-129) Total Creatine Kinase 547 U/L (38-174) H Creatine Kinase MB 11.3 ng/mL (< 6.7) H Creatine Kinase MB Relative Index 2.0 Troponin I < 0.30 ng/mL (<=0.30) Total Protein 7.3 g/dL (6.6-8.7) Albumin 4.5 g/dL (3.5-5.2) Globulin 2.8 g/dL Albumin/Globulin Ratio 1.6 (1.0-2.7) Salicylates Level < 1 mg/dL (10-30) L Acetaminophen Level < 10 ug/mL (10-30) L Serum Alcohol < 10 mg/dL Urine Opiates Screen Negative (NEGATIVE) Urine Barbiturates Screen Negative (NEGATIVE) Phencyclidine (PCP) Screen Negative (NEGATIVE) Urine Amphetamines Screen Negative (NEGATIVE) Urine Benzodiazepines Screen Negative (NEGATIVE) Urine Cocaine Screen Negative (NEGATIVE) Urine Marijuana (THC) Screen Negative (NEGATIVE) Height (Feet): 5 Height (Inches): 9.00 Weight (Pounds): 160 Assessment/Plan Status: not improved, unchanged Assessment/Plan Schizophrenia -risperdal 2mg qhs -admit for further treatment. Jose Rosenberg M.D. Apr 02, 2017 13:20
[2017-04-02 14:25] VITALS: BP 145/90
--- NOTE | 2017-04-02 14:46 | Emergency Room Report ---
History of Present Illness General Chief Complaint: Behavioral Complaint Source: Patient Present Illness HPI 67-year-old male presents ED for evaluation. Patient brought in by EMS. Patient is disheveled, rambling incoherently. Patient brought in by EMS and [employer]. Per EMS patient tried to walk into traffic. Patient denies any suicidal or homicidal ideation. unable to provide any additional history at this time. No other aggravating or relieving factors. Denies any other associated symptoms Allergies: Coded Allergies: FLUPHENAZINE (Unverified Allergy, Unknown, 07/06/15) FLUPHENAZINE ENANTHATE (Verified Allergy, Unknown, 08/10/16) FLUPHENAZINE HCL (Verified Allergy, Unknown, 08/10/16) HALOPERIDOL (Verified Allergy, Unknown, 08/10/16) HALOPERIDOL LACTATE (Verified Allergy, Unknown, 11/18/14) IBUPROFEN (Verified Allergy, Unknown, 11/18/14) NIACIN (Unverified Allergy, Unknown, 07/06/15) Patient History Past Medical History: none Past Surgical History: none Pertinent Family History: none Social History: Denies: smoking, alcohol use, drug use Immunizations: UTD Reviewed Nursing Documentation: PMH: Agreed, PSxH: Agreed Review of Systems All Other Systems: negative except mentioned in HPI Physical Exam Vital Signs Date Time Temp Pulse Resp B/P (MAP) Pulse Ox O2 Delivery O2 Flow Rate FiO2 04/02/17 09:43 97.0 103 16 152/88 100 Room Air Sp02 EP Interpretation: reviewed, normal General Appearance: no apparent distress, alert, GCS 15, non-toxic Head: normocephalic, atraumatic Eyes: bilateral eye normal inspection, bilateral eye PERRL ENT: hearing grossly normal, normal pharynx, no angioedema, normal voice Neck: full range of motion, supple/symm/no masses Respiratory: chest non-tender, lungs clear, normal breath sounds, speaking full sentences Cardiovascular #1: regular rate, rhythm, no edema Cardiovascular #2: 2+ carotid (R), 2+ carotid (L), 2+ radial (R), 2+ radial (L) , 2+ dorsalis pedis (R), 2+ dorsalis pedis (L) Gastrointestinal: normal bowel sounds, non tender, soft, non-distended, no guarding, no rebound Rectal: deferred Genitourinary: normal inspection, no CVA tenderness Musculoskeletal: back normal, gait/station normal, normal range of motion, non- tender, calf tenderness Neurologic: alert, motor strength/tone normal, sensory intact, speech normal Psychiatric: no suicidal/homicidal ideation Reflexes: 3+ bicep (R), 3+ bicep (L), 3+ tricep (R), 3+ tricep (L), 3+ knee (R) , 3+ knee (L) Skin: normal color, no rash, warm/dry, well hydrated Lymphatic: no adenopathy Medical Decision Making Diagnostic Impression: Primary Impression: Schizophrenia Qualified Codes: F20.9 - Schizophrenia, unspecified Additional Impression: Gravely disabled ER Course Hospital Course 67-year-old male presents to ED with altered mental status. speaking incohrently. running into traffic Differential diagnoses include: Post ictal, psychosis, alcohol toxicity, intracranial injury Clinical course She placed on stretcher. On nuclear monitoring technician. After initial history and physical ordered labs, IV fluids, EKG, CT brain. Labs reviewed-electrolytes okay, no leukocytosis, hemoglobin/hematocrit stable, tox panel negative CT brain shows no acute pathology EKG - NSR, no acute ischemic changes interpreted by me [employer] place patient on 5150 hold for danger to himself. Patient seen by Dr. Rosenberg. Agreed that patient is not suicidal but is gravely disabled and needs placement case discussed with Dr. Bhatti and he agreed to accept the patient to his service for further care and support. Dr Rosenberg will consult i. I feel this is a highly complex case requiring extensive working including EKG/Rhythm strip, Xray/CT/US, Blood/urine lab work, repeat exams while in ED, and administration of strong opiates/narcotics for pain control, admission to hospital or close patient follow up. Diagnosis - schizophrenia, gravely disabled Admitted to floor in serious condition Labs Test 04/02/17 10:00 04/02/17 10:50 White Blood Count 6.2 K/UL (4.8-10.8) Red Blood Count 4.85 M/UL (4.70-6.10) Hemoglobin 13.0 G/DL (14.2-18.0) Hematocrit 42.5 % (42.0-52.0) Mean Corpuscular Volume 88 FL (80-99) Mean Corpuscular Hemoglobin 26.7 PG (27.0-31.0) Mean Corpuscular Hemoglobin Concent 30.5 G/DL (32.0-36.0) Red Cell Distribution Width 16.9 % (11.6-14.8) Platelet Count 266 K/UL (150-450) Mean Platelet Volume 6.8 FL (6.5-10.1) Neutrophils (%) (Auto) 72.4 % (45.0-75.0) Lymphocytes (%) (Auto) 13.8 % (20.0-45.0) Monocytes (%) (Auto) 9.2 % (1.0-10.0) Eosinophils (%) (Auto) 2.8 % (0.0-3.0) Basophils (%) (Auto) 1.8 % (0.0-2.0) Sodium Level 144 mEQ/L (135-145) Potassium Level 4.6 mEQ/L (3.4-4.9) Chloride Level 104 mEQ/L (98-107) Carbon Dioxide Level 25 mEQ/L (20-30) Anion Gap 15 (5-15) Blood Urea Nitrogen 17 mg/dL (7-23) Creatinine 0.9 mg/dL (0.7-1.2) Estimat Glomerular Filtration Rate > 60 mL/min (>60) Glucose Level 120 mg/dL (74-106) Calcium Level 9.0 mg/dL (8.6-10.2) Total Bilirubin 0.6 mg/dL (0.0-1.2) Aspartate Amino Transf (AST/SGOT) 33 U/L (5-40) Alanine Aminotransferase (ALT/SGPT) 21 U/L (3-41) Alkaline Phosphatase 67 U/L (40-129) Total Creatine Kinase 547 U/L (38-174) Creatine Kinase MB 11.3 ng/mL (< 6.7) Creatine Kinase MB Relative Index 2.0 Troponin I < 0.30 ng/mL (<=0.30) Total Protein 7.3 g/dL (6.6-8.7) Albumin 4.5 g/dL (3.5-5.2) Globulin 2.8 g/dL Albumin/Globulin Ratio 1.6 (1.0-2.7) Salicylates Level < 1 mg/dL (10-30) Acetaminophen Level < 10 ug/mL (10-30) Serum Alcohol < 10 mg/dL Urine Opiates Screen Negative (NEGATIVE) Urine Barbiturates Screen Negative (NEGATIVE) Phencyclidine (PCP) Screen Negative (NEGATIVE) Urine Amphetamines Screen Negative (NEGATIVE) Urine Benzodiazepines Screen Negative (NEGATIVE) Urine Cocaine Screen Negative (NEGATIVE) Urine Marijuana (THC) Screen Negative (NEGATIVE) EKG Diagnostic Results Rate: tachycardiac Rhythm: NSR ST Segments: no acute changes ASA given to the pt in ED: No Rhythm Strip Diag. Results EP Interpretation: yes Rhythm: NSR, no PVC's, no ectopy CT/MRI/US Diagnostic Results CT/MRI/US Diagnostic Results : Imaging Test Ordered: CT Head Impression no acute process Last Vital Signs Date Time Temp Pulse Resp B/P (MAP) Pulse Ox O2 Delivery O2 Flow Rate FiO2 04/02/17 14:25 67 16 145/90 100 Room Air 04/02/17 09:50 97.0 Status: improved Disposition: ADMITTED INPATIENT Condition: Serious Referrals: NON PHYSICIAN (PCP) CHAITANYA SANDERS M.D. Apr 02, 2017 14:46
[2017-04-02] MEDS ORDERED: Mylanta II UD 30ml ORAL PRN (15:00)
[2017-04-02] MEDS ORDERED: Miralax 17gm pkt ORAL PRN (15:00)
[2017-04-02] MEDS ORDERED: LORazepam Inj 2mg/ml 1ml IV PRN (15:00)
[2017-04-02] MEDS ORDERED: Morphine Sulfate 2mg/ml Inj IVP PRN (15:00)
[2017-04-02] MEDS ORDERED: Albuterol 90mcg Inhaler 8gm INH SCH (15:00)
[2017-04-02] MEDS ORDERED: Zolpidem 5mg tab ORAL PRN (15:00)
[2017-04-02 20:00] VITALS: BP 135/98
--- NOTE | 2017-04-03 15:23 | Diagnostic Imaging Report ---
APPROVED REPORT CPT Code: 94476 Present Symptoms Lower Extremity Pain: Right BILATERAL: Imaging reveals a patent deep venous system bilaterally. There is no evidence of thrombus within the femoral, popliteal or tibial segments. The greater saphenous veins are also within normal limits. Doppler indicates normal spontaneous flow within these segments.
--- NOTE | 2017-04-04 11:15 | Discharge Summary ---
Discharge Summary Hospital Course Date of Admission Apr 02, 2017 at 14:18 Date of Discharge Apr 02, 2017 at 21:20 Admitting Diagnosis AMS HPI Rodney Lopez is a 67 year old male who was admitted on Apr 02, 2017 at 14:18 for Altered Mental Status Hospital Course [id number] Discharge Discharge Disposition Patient left AMA Discharge Diagnoses: Meghan aVlverde NP Apr 04, 2017 11:15
== END 2017-04-02 21:20 | disposition left against medical advice (07) | DRG 885 ==
LOC: EDBD 09:48 → EMR 10:50 → EDBD 10:50 → EDUNIT# 10:50 → 4E 14:18 → EDBEDREQ 15:07 → 4W 18:45
DX: F20.9 Schizophrenia, unspecified (principal); Z59.0 Homelessness; R41.82 Altered mental status, unspecified; Z88.8 Allergy status to other drugs, medicaments and biological substances; Z88.6 Allergy status to analgesic agent
CPT/HCPCS: 36415; 70450; 80053; 80300; 80329; 82550; 82553; 84484; 85025; 93005; 93970; 99285

== ENCOUNTER 2017-09-26 22:10 | Inpatient (IN) | payer OTHER ==
[~2017-09-26] VITALS: Ht 177.8 cm; Wt 81.6 kg
[~2017-09-26 22:10] MED LIST changes: +UNOBMED
[2017-09-26 22:15] VITALS: BP 150/95
[2017-09-27] VITALS (8 sets, daily range): BP systolic 137–154; BP diastolic 66–91
[2017-09-27 00:04] LABS: BASOPHILS % (AUTO) 0.6 % (0.0-2.0); EOSINOPHILS % (AUTO) 0.8 % (0.0-3.0); HEMATOCRIT 40.3 % (42.0-52.0); HEMOGLOBIN 13.2 G/DL (14.2-18.0); LYMPHOCYTES % (AUTO) 14.8 % (20.0-45.0); MEAN CORPUSCULAR VOLUME 87 FL (80-99); MONOCYTES % (AUTO) 8.6 % (1.0-10.0); NEUTROPHILS % (AUTO) 75.2 % (45.0-75.0); PLATELET COUNT 249 K/UL (150-450); RED BLOOD COUNT 4.64 M/UL (4.70-6.10); WHITE BLOOD COUNT 6.4 K/UL (4.8-10.8)
[2017-09-27 00:05] LABS: ANION GAP 5 mmol/L (5-15); BLOOD UREA NITROGEN 19 mg/dL (7-18); CALCIUM 9.7 MG/DL (8.5-10.1); CARBON DIOXIDE 33 MMOL/L (21-32); CHLORIDE 104 MMOL/L (98-107); CREATININE 1.3 MG/DL (0.55-1.30); POTASSIUM 3.8 MMOL/L (3.5-5.1); SODIUM 141 MMOL/L (136-145)
[2017-09-27 00:09] LABS: ALANINE AMINOTRANSFERASE 47 U/L (12-78); ALBUMIN 3.9 G/DL (3.4-5.0); ALKALINE PHOSPHATASE 80 U/L (46-116); ASPARTATE AMINO TRANSFERASE 44 U/L (15-37); BILIRUBIN,TOTAL 0.7 MG/DL (0.2-1.0)
--- NOTE | 2017-09-27 00:28 | Emergency Room Report ---
History of Present Illness General Chief Complaint: Behavioral Complaint Source: Patient, Medical Record, EMS Present Illness HPI 59-year-old male, history of schizophrenia, brought in by EMS coming from his facility after suicidal or homicidal ideation. Patient is currently very disorganized, not giving clear history, rambling about nonsense. He reportedly told another resident that he was going to kill him. Patient currently disorganized and speaking to himself on 5150 Allergies: Coded Allergies: FLUPHENAZINE (Unverified Allergy, Unknown, 07/06/15) FLUPHENAZINE ENANTHATE (Verified Allergy, Unknown, 08/10/16) FLUPHENAZINE HCL (Verified Allergy, Unknown, 08/10/16) HALOPERIDOL (Verified Allergy, Unknown, 08/10/16) HALOPERIDOL LACTATE (Verified Allergy, Unknown, 11/18/14) IBUPROFEN (Verified Allergy, Unknown, 11/18/14) NIACIN (Unverified Allergy, Unknown, 07/06/15) Patient History Past Medical History: see triage record Past Surgical History: none Pertinent Family History: none Reviewed Nursing Documentation: PMH: Agreed, PSxH: Agreed Nursing Documentation-PMH Hx Hypertension: Yes Hx Asthma: No Hx Diabetes: No Hx Cancer: Yes - lung ca s/p resection, xrt and chemotherapy Hx Dialysis: No Hx Neurological Problems: Yes - MIGRAINE Hx Cerebrovascular Accident: No Hx Seizures: Yes Review of Systems All Other Systems: limited Physical Exam Vital Signs Date Time Temp Pulse Resp B/P (MAP) Pulse Ox O2 Delivery O2 Flow Rate FiO2 09/26/17 21:59 98.4 109 18 158/100 99 Room Air 98.4 Sp02 EP Interpretation: reviewed, normal General Appearance: other - Very disorganized male, agitated, not making sense Head: normocephalic, atraumatic Eyes: bilateral eye normal inspection, bilateral eye PERRL, bilateral eye EOMI ENT: normal ENT inspection, normal pharynx, normal voice, moist mucus membranes Neck: normal inspection, full range of motion, supple Respiratory: normal inspection, lungs clear, normal breath sounds, no respiratory distress, no retraction, no wheezing, speaking full sentences, chest symmetrical Cardiovascular #1: normal inspection, regular rate, rhythm, no edema, normal capillary refill Cardiovascular #2: 2+ radial (R), 2+ radial (L) Gastrointestinal: normal inspection, non tender, soft, non-distended, no guarding Genitourinary: no CVA tenderness Musculoskeletal: normal inspection, back normal, normal range of motion, non- tender Neurologic: alert, motor strength/tone normal, normal gait Psychiatric: other - delusional and disorganized Skin: normal inspection, normal color, no rash, warm/dry, well hydrated, normal turgor Medical Decision Making Diagnostic Impression: Primary Impression: Schizophrenia Additional Impression: Suicidal ideation ER Course 67-year-old male, homicidal ideation, paranoid, disorganized DDX: Likely psychiatric illness, rule out intoxication, rule out electrolyte disturbance. There is no history of any head trauma Plan: Obtain labs, ua, EKG ER course: Patient has been talking to himself during ED stay endorsing SI and HI given zyprexa Patient is medically clear for placement Signed out to Dr. Elizondo -67 yo M with schizophrenia, SI/HI ON HOLD pending placement Please note that this Emergency Department Report was dictated using [employer] worker technology software, occasionally this can lead to erroneous entry secondary to interpretation by the dictation equipment. EKG Diagnostic Results EP Interpretation: Yes Rate: normal Rhythm: NSR ST Segments: No acute changes ASA given to patient: No Laboratory Tests Test 09/26/17 23:30 09/27/17 01:45 White Blood Count 6.4 K/UL (4.8-10.8) Red Blood Count 4.64 M/UL (4.70-6.10) L Hemoglobin 13.2 G/DL (14.2-18.0) L Hematocrit 40.3 % (42.0-52.0) L Mean Corpuscular Volume 87 FL (80-99) Mean Corpuscular Hemoglobin 28.4 PG (27.0-31.0) Mean Corpuscular Hemoglobin Concent 32.7 G/DL (32.0-36.0) Red Cell Distribution Width 15.0 % (11.6-14.8) H Platelet Count 249 K/UL (150-450) Mean Platelet Volume 6.6 FL (6.5-10.1) Neutrophils (%) (Auto) 75.2 % (45.0-75.0) H Lymphocytes (%) (Auto) 14.8 % (20.0-45.0) L Monocytes (%) (Auto) 8.6 % (1.0-10.0) Eosinophils (%) (Auto) 0.8 % (0.0-3.0) Basophils (%) (Auto) 0.6 % (0.0-2.0) Sodium Level 141 MMOL/L (136-145) Potassium Level 3.8 MMOL/L (3.5-5.1) Chloride Level 104 MMOL/L (98-107) Carbon Dioxide Level 33 MMOL/L (21-32) H Anion Gap 5 mmol/L (5-15) Blood Urea Nitrogen 19 mg/dL (7-18) H Creatinine 1.3 MG/DL (0.55-1.30) Estimate Glomerular Filtration Rate 54.9 mL/min (>60) Glucose Level 102 MG/DL (74-106) Calcium Level 9.7 MG/DL (8.5-10.1) Total Bilirubin 0.7 MG/DL (0.2-1.0) Aspartate Amino Transferase (AST) 44 U/L (15-37) H Alanine Aminotransferase (ALT) 47 U/L (12-78) Alkaline Phosphatase 80 U/L (46-116) Total Protein 7.9 G/DL (6.4-8.2) Albumin 3.9 G/DL (3.4-5.0) Globulin 4.0 g/dL Albumin/Globulin Ratio 1.0 (1.0-2.7) Salicylates Level < 0.2 ug/mL (2.8-20) L Acetaminophen Level < 2 MCG/ML (10-30) L Serum Alcohol < 3 mg/dL Urine Color Yellow Urine Appearance Clear Urine pH 7 (4.5-8.0) Urine Specific [place] 1.015 (1.005-1.035) Urine Protein 2+ (NEGATIVE) H Urine Glucose (UA) Negative (NEGATIVE) Urine Ketones 2+ (NEGATIVE) H Urine Occult Blood Negative (NEGATIVE) Urine Nitrite Negative (NEGATIVE) Urine Bilirubin Negative (NEGATIVE) Urine Urobilinogen 1 MG/DL (0.0-1.0) H Urine Leukocyte Esterase 1+ (NEGATIVE) H Urine RBC 0 /HPF (0 - 0) Urine WBC 2-4 /HPF (0 - 0) Urine Squamous Epithelial Cells Few /LPF (NONE/OCC) Urine Bacteria Few /HPF (NONE) Urine Fine Granular Casts 0-2 /LPF (NONE) H Urine Coarse Granular Casts 0-2 /LPF (NONE) H Urine Mucus Moderate /LPF (NONE/OCC) H Urine Opiates Screen Negative (NEGATIVE) Urine Barbiturates Screen Negative (NEGATIVE) Phencyclidine (PCP) Screen Negative (NEGATIVE) Urine Amphetamines Screen Negative (NEGATIVE) Urine Benzodiazepines Screen Negative (NEGATIVE) Urine Cocaine Screen Negative (NEGATIVE) Urine Marijuana (THC) Screen Negative (NEGATIVE) Last Vital Signs Date Time Temp Pulse Resp B/P (MAP) Pulse Ox O2 Delivery O2 Flow Rate FiO2 09/26/17 22:15 98.4 85 16 150/95 95 Room Air 98.4 Referrals: NON PHYSICIAN (PCP) Pavithra Manzanares M.D. Sep 27, 2017 00:28
[2017-09-27 02:03] LABS: APPEARANCE,URINE CLEAR; BILIRUBIN, URINE NEGATIVE (NEGATIVE); GLUCOSE, URINE (UA) NEGATIVE (NEGATIVE); KETONES,URINE 2+ (NEGATIVE); LEUKOCYTE ESTERASE ,URINE 1+ (NEGATIVE); NITRITE,URINE NEGATIVE (NEGATIVE); PH,URINE 7 (4.5-8.0); PROTEIN,URINE 2+ (NEGATIVE); UROBILINOGEN,URINE 1 MG/DL (0.0-1.0)
[2017-09-27 02:06] LABS: COLOR,URINE YELLOW
[2017-09-27] MEDS ORDERED: PANTOPRAZOLE SO40 MG ORAL (12:05)
[2017-09-27] MEDS ORDERED: METFORMIN HCL500 M1 ORAL (12:05)
[2017-09-27] MEDS ORDERED: XARELTO20 MG ORAL (12:05)
[2017-09-27] MEDS ORDERED: ZANTAC150 MG ORAL (12:05)
[2017-09-27] MEDS ORDERED: BENZTROPINE MESY2 MG ORAL (12:05)
[2017-09-27] MEDS ORDERED: TRIFLUOPERAZINE5 MG PO (12:05)
[2017-09-27] MEDS ORDERED: AMLODIPINE BES2.5 MG ORAL (12:05)
[2017-09-27] MEDS ORDERED: ZOFRAN8 MG ORAL (12:05)
[2017-09-27] MEDS ORDERED: LORazepam Inj 2mg/ml 1ml IM ONE (13:15)
[2017-09-28] VITALS (11 sets, daily range): BP systolic 120–154; BP diastolic 68–94
[2017-09-28] MEDS ORDERED: LORazepam 1mg tab ORAL ONE ×2 (06:45→08:00)
[2017-09-28] MEDS ORDERED: Xarelto 10mg tab ORAL SCH (13:00)
[2017-09-28] MEDS: DiphenhydrAMINE 50mg/ml Inj IVP ONE ×2 (13:00→15:35)
[2017-09-28] MEDS ORDERED: metFORMIN 500mg tab ORAL SCH (13:00)
[2017-09-28] MEDS ORDERED: Mylanta II UD 30ml ORAL PRN (16:00)
[2017-09-28] MEDS ORDERED: Zolpidem 5mg tab ORAL PRN (16:00)
[2017-09-28] MEDS ORDERED: Miralax 17gm pkt ORAL PRN (16:30)
[2017-09-28] MEDS ORDERED: Morphine Sulfate 4mg/ml Inj IVP PRN (16:30)
[2017-09-28] MEDS: LORazepam Inj 2mg/ml 1ml IV PRN (16:45)
[2017-09-28] MEDS: NovoLOG Insulin Flexpen SUBQ SCH ×2 (17:00→21:00)
[2017-09-28] MEDS: Benztropine 1mg tab ORAL SCH (18:00)
[2017-09-29 00:05] VITALS: BP 112/74
[2017-09-29 04:00] VITALS: BP 97/57
[2017-09-29] MEDS: NovoLOG Insulin Flexpen SUBQ SCH ×4 (06:30→22:00)
[2017-09-29 08:00] VITALS: BP 128/83
[2017-09-29 08:11] LABS: BASOPHILS % (AUTO) 0.8 % (0.0-2.0); EOSINOPHILS % (AUTO) 3.5 % (0.0-3.0); HEMATOCRIT 40.6 % (42.0-52.0); HEMOGLOBIN 13.3 G/DL (14.2-18.0); LYMPHOCYTES % (AUTO) 21.8 % (20.0-45.0); MEAN CORPUSCULAR VOLUME 87 FL (80-99); MONOCYTES % (AUTO) 8.1 % (1.0-10.0); NEUTROPHILS % (AUTO) 65.7 % (45.0-75.0); PLATELET COUNT 206 K/UL (150-450); RED BLOOD COUNT 4.67 M/UL (4.70-6.10); RED CELL DISTRIBUTION WIDTH 14.8 % (11.6-14.8); WHITE BLOOD COUNT 4.5 K/UL (4.8-10.8)
[2017-09-29 08:23] LABS: ALANINE AMINOTRANSFERASE 32 U/L (12-78); ALBUMIN 3.2 G/DL (3.4-5.0); ALBUMIN/GLOBULIN RATIO 0.9 (1.0-2.7); ALKALINE PHOSPHATASE 61 U/L (46-116); ANION GAP 4 mmol/L (5-15); ASPARTATE AMINO TRANSFERASE 27 U/L (15-37); BILIRUBIN,TOTAL 0.6 MG/DL (0.2-1.0); BLOOD UREA NITROGEN 13 mg/dL (7-18); CALCIUM 8.8 MG/DL (8.5-10.1); CARBON DIOXIDE 31 MMOL/L (21-32); CHLORIDE 107 MMOL/L (98-107); CHOLESTEROL 179 MG/DL (< 200); CREATININE 0.8 MG/DL (0.55-1.30); HDL CHOLESTEROL 54 MG/DL (40-60); POTASSIUM 3.6 MMOL/L (3.5-5.1); SODIUM 142 MMOL/L (136-145); TRIGLYCERIDES 69 MG/DL (30-150)
[2017-09-29] MEDS: Xarelto 10mg tab ORAL SCH ×2 (09:00→09:34)
[2017-09-29] MEDS: Benztropine 1mg tab ORAL SCH ×3 (09:00→18:00)
[2017-09-29] MEDS: LORazepam Inj 2mg/ml 1ml IV PRN ×3 (09:34→22:20)
--- NOTE | 2017-09-29 15:08 | Cardiology Report ---
APPROVED REPORT EKG Measurement Heart [id number] Sinus rhythm with premature atrial complexes Nonspecific ST abnormality Prolonged QT Abnormal ECG
--- NOTE | 2017-09-29 17:35 | Pulmonology Progress Note ---
Assessment/Plan Problems: (1) Acute delirium (2) Schizophrenia (3) Bronchitis (4) Methamphetamine abuse Assessment/Plan pt sitll wants to leave psych saw the patient Subjective ROS Limited/Unobtainable: No Interval Events: wants to leave Allergies: Coded Allergies: FLUPHENAZINE (Unverified Allergy, Unknown, 07/06/15) FLUPHENAZINE ENANTHATE (Verified Allergy, Unknown, 08/10/16) FLUPHENAZINE HCL (Verified Allergy, Unknown, 08/10/16) HALOPERIDOL (Verified Allergy, Unknown, 08/10/16) HALOPERIDOL LACTATE (Verified Allergy, Unknown, 11/18/14) IBUPROFEN (Verified Allergy, Unknown, 11/18/14) NIACIN (Unverified Allergy, Unknown, 07/06/15) Objective Last 24 Hour Vital Signs Date Time Temp Pulse Resp B/P (MAP) Pulse Ox O2 Delivery O2 Flow Rate FiO2 09/29/17 13:18 98.1 09/29/17 12:48 98.1 09/29/17 08:00 98.1 85 17 128/83 98 Room Air 98.1 09/29/17 04:00 97.0 80 16 97/57 97.0 09/29/17 00:05 97.2 73 20 112/74 97 97.2 09/28/17 20:00 97.0 75 18 154/91 100 97.0 09/28/17 17:35 98.1 90 22 128/68 98 98.1 Intake and Output 09/28/17 09/29/17 19:00 07:00 Intake Total 480 ml 240 ml Output Total 500 ml Balance -20 ml 240 ml Intake Oral 480 ml 240 ml Output Urine Total 500 ml # Voids 3 Objective General Appearance: WD/WN HEENT: normocephalic, atraumatic Respiratory/Chest: chest wall non-tender, lungs clear, normal breath sounds Cardiovascular: normal peripheral pulses, normal rate Abdomen: normal bowel sounds, no organomegaly Genitourinary: normal external genitalia Extremities: no cyanosis Skin: no rash Neurologic/Psychiatric: resident care assistant II-XII grossly normal Laboratory Tests 09/29/17 06:28: White Blood Count 4.5L, Red Blood Count 4.67L, Hemoglobin 13.3L, Hematocrit 40.6L, Mean Corpuscular Volume 87, Mean Corpuscular Hemoglobin 28.5, Mean Corpuscular Hemoglobin Concent 32.8, Red Cell Distribution Width 14.8, Platelet Count 206, Mean Platelet Volume 6.0L, Neutrophils (%) (Auto) 65.7, Lymphocytes ( %) (Auto) 21.8, Monocytes (%) (Auto) 8.1, Eosinophils (%) (Auto) 3.5H, Basophils (%) (Auto) 0.8, Sodium Level 142, Potassium Level 3.6, Chloride Level 107, Carbon Dioxide Level 31, Anion Gap 4L, Blood Urea Nitrogen 13, Creatinine 0.8, Estimat Glomerular Filtration Rate > 60, Glucose Level 78, Calcium Level 8.8, Total Bilirubin 0.6, Aspartate Amino Transf (AST/SGOT) 27, Alanine Aminotransferase (ALT/SGPT) 32, Alkaline Phosphatase 61, Total Protein 6.6, Albumin 3.2L, Globulin 3.4, Albumin/Globulin Ratio 0.9L, Triglycerides Level 69 , Cholesterol Level 179, LDL Cholesterol 113H, HDL Cholesterol 54, Cholesterol/ HDL Ratio 3.3 Current Medications Medications (Trade) Dose Ordered Sig/Tammy Route PRN Reason Start Time Stop Time Status Last Admin Dose Admin Acetaminophen (Tylenol) 650 mg Q4H PRN ORAL fever 09/28/17 16:00 10/28/17 15:59 Al Hydroxide/Mg Hydroxide (Mylanta II) 30 ml Q6H PRN ORAL dyspepsia 09/28/17 16:00 10/28/17 15:59 Amlodipine Besylate (Norvasc) 2.5 mg DAILY ORAL 09/29/17 09:00 10/29/17 08:59 Benztropine Mesylate (Cogentin) 2 mg TWICE A DAY ORAL 09/28/17 18:00 10/28/17 17:59 Dextrose (Dextrose 50%) STAT PRN IV Hypoglycemia 09/28/17 16:00 10/28/17 15:59 Insulin Aspart (NovoLOG) BEFORE MEALS AND HS SUBQ 09/28/17 17:00 10/28/17 16:59 Lorazepam (Ativan 2mg/ml 1ml) 0.5 mg Q4H PRN IV For Anxiety 09/28/17 16:00 10/05/17 15:59 09/29/17 14:26 Morphine Sulfate (Morphine Sulfate) 1 mg Q4H PRN IVP Moderate to Severe Pain 09/28/17 16:30 10/05/17 16:29 09/29/17 12:48 Ondansetron HCl (Zofran) 4 mg Q6H PRN IVP Nausea & Vomiting 09/28/17 16:00 10/28/17 15:59 Pantoprazole (Protonix) 40 mg Q12HR ORAL 09/28/17 21:00 10/28/17 20:59 09/28/17 20:47 Polyethylene Glycol (Miralax) 17 gm HSPRN PRN ORAL Constipation 09/28/17 16:30 10/28/17 16:29 Rivaroxaban (Xarelto) 10 mg DAILY ORAL 09/29/17 09:00 10/29/17 08:59 Zolpidem Tartrate (Ambien) 5 mg HSPRN PRN ORAL Insomnia 09/28/17 16:00 10/05/17 15:59 NANCY BADILLO Sep 29, 2017 17:35
[2017-09-29 19:50] VITALS: BP 131/75
[2017-09-30] VITALS (8 sets, daily range): BP systolic 98–139; BP diastolic 56–91
[2017-09-30] MEDS: NovoLOG Insulin Flexpen SUBQ SCH ×4 (06:30→20:45)
[2017-09-30 08:52] LABS: BASOPHILS % (AUTO) 0.8 % (0.0-2.0); EOSINOPHILS % (AUTO) 4.7 % (0.0-3.0); HEMATOCRIT 41.4 % (42.0-52.0); HEMOGLOBIN 13.2 G/DL (14.2-18.0); LYMPHOCYTES % (AUTO) 22.7 % (20.0-45.0); MEAN CORPUSCULAR VOLUME 87 FL (80-99); MONOCYTES % (AUTO) 8.1 % (1.0-10.0); NEUTROPHILS % (AUTO) 63.7 % (45.0-75.0); PLATELET COUNT 216 K/UL (150-450); RED BLOOD COUNT 4.77 M/UL (4.70-6.10); RED CELL DISTRIBUTION WIDTH 14.7 % (11.6-14.8); WHITE BLOOD COUNT 4.6 K/UL (4.8-10.8)
[2017-09-30] MEDS: Xarelto 10mg tab ORAL SCH (08:59)
[2017-09-30] MEDS: Benztropine 1mg tab ORAL SCH ×2 (08:59→18:00)
[2017-09-30 09:15] LABS: ALANINE AMINOTRANSFERASE 27 U/L (12-78); ALBUMIN/GLOBULIN RATIO 0.9 (1.0-2.7); ALKALINE PHOSPHATASE 58 U/L (46-116); ANION GAP 5 mmol/L (5-15); ASPARTATE AMINO TRANSFERASE 21 U/L (15-37); BILIRUBIN,TOTAL 0.6 MG/DL (0.2-1.0); BLOOD UREA NITROGEN 14 mg/dL (7-18); CALCIUM 8.5 MG/DL (8.5-10.1); CARBON DIOXIDE 31 MMOL/L (21-32); CHLORIDE 106 MMOL/L (98-107); CREATININE 0.8 MG/DL (0.55-1.30); PHOSPHORUS 3.6 MG/DL (2.5-4.9); POTASSIUM 4.1 MMOL/L (3.5-5.1); SODIUM 142 MMOL/L (136-145)
--- NOTE | 2017-09-30 16:09 | History and Physical ---
History of Present Illness General Date patient seen: Sep 28, 2017 Reason for Hospitalization: Behavioral Complaint Present Illness HPI 59-year-old male, history of schizophrenia, COPD brought in by EMS coming from his facility after suicidal or homicidal ideation. Patient is currently very disorganized, not giving clear history, rambling about nonsense. He reportedly told another resident that he was going to kill him. He was recently diagnosed to have bronchitis. Allergies: Coded Allergies: FLUPHENAZINE (Unverified Allergy, Unknown, 07/06/15) FLUPHENAZINE ENANTHATE (Verified Allergy, Unknown, 08/10/16) FLUPHENAZINE HCL (Verified Allergy, Unknown, 08/10/16) HALOPERIDOL (Verified Allergy, Unknown, 08/10/16) HALOPERIDOL LACTATE (Verified Allergy, Unknown, 11/18/14) IBUPROFEN (Verified Allergy, Unknown, 11/18/14) NIACIN (Unverified Allergy, Unknown, 07/06/15) Medication History Scheduled Albuterol Sulfate* (Albuterol Sulfate Mdi*), 2 PUFF INH Q3H Amlodipine Besylate* (Amlodipine Besylate*), 2.5 MG ORAL DAILY, (Reported) Benztropine Mesylate* (Benztropine Mesylate*), 2 MG ORAL TWICE A DAY, (Reported) Famotidine (Famotidine), 20 MG ORAL DAILY, (Reported) Hydrocodone/Acetaminophen 5-500 (Vicodin 5-500), 1 TAB PO BID, (Reported) Metformin Hcl* (Metformin Hcl*), 500 MG ORAL TWICE A DAY, (Reported) Pantoprazole* (Pantoprazole*), 40 MG ORAL Q8HR, (Reported) Ranitidine Hcl* (Zantac*), 150 MG ORAL DAILY, (Reported) Trifluoperazine Hcl* (Stelazine*), 5 MG PO DAILY, (Reported) Scheduled PRN Ondansetron Hcl* (Zofran*), 40 MG ORAL Q8HR PRN for Nausea & Vomiting, (Reported ) Miscellaneous Medications Rivaroxaban (Xarelto), 20 MG ORAL, (Reported) Unable to Obtain Medications (Unable To Obtain Meds), (Reported) Discontinued Medications Warfarin Sod* (Coumadin*), 5 MG PO DAILY, (Reported) Discontinued Reason: Therapy completed Patient History Healthcare decision maker Resuscitation status Full Code Advanced Directive on File Past Medical/Surgical History Past Medical/Surgical History: (1) Schizophrenia (2) Opioid dependence Review of Systems All Other Systems: negative except mentioned in HPI Physical Exam General Appearance: WD/WN Lines, tubes and drains: peripheral, PICC HEENT: mucous membranes moist Neck: non-tender, normal alignment Respiratory/Chest: chest wall non-tender, normal breath sounds Breasts: no masses Cardiovascular/Chest: normal peripheral pulses, normal rate Abdomen: non tender Genitourinary/Rectal: normal genital exam Last 24 Hour Vital Signs Date Time Temp Pulse Resp B/P (MAP) Pulse Ox O2 Delivery O2 Flow Rate FiO2 09/30/17 16:00 97.6 98 19 139/86 99 97.6 09/30/17 13:13 98.6 72 18 99/62 100 Room Air 98.6 09/30/17 12:15 98.6 72 18 99/62 98 Room Air 98.6 09/30/17 08:52 67 98/56 09/30/17 08:15 98.7 67 18 98/56 96 Room Air 98.7 09/30/17 04:00 97.3 97 20 127/68 98 97.3 09/30/17 00:00 97.2 103 21 128/72 100 97.2 09/29/17 19:50 97.3 107 21 131/75 99 97.3 Intake and Output 09/29/17 09/30/17 19:00 07:00 Intake Total 1400 ml Balance 1400 ml Intake Oral 1400 ml # Voids 1 3 Laboratory Tests Test 09/30/17 07:15 White Blood Count 4.6 K/UL (4.8-10.8) L Red Blood Count 4.77 M/UL (4.70-6.10) Hemoglobin 13.2 G/DL (14.2-18.0) L Hematocrit 41.4 % (42.0-52.0) L Mean Corpuscular Volume 87 FL (80-99) Mean Corpuscular Hemoglobin 27.6 PG (27.0-31.0) Mean Corpuscular Hemoglobin Concent 31.8 G/DL (32.0-36.0) L Red Cell Distribution Width 14.7 % (11.6-14.8) Platelet Count 216 K/UL (150-450) Mean Platelet Volume 6.5 FL (6.5-10.1) Neutrophils (%) (Auto) 63.7 % (45.0-75.0) Lymphocytes (%) (Auto) 22.7 % (20.0-45.0) Monocytes (%) (Auto) 8.1 % (1.0-10.0) Eosinophils (%) (Auto) 4.7 % (0.0-3.0) H Basophils (%) (Auto) 0.8 % (0.0-2.0) Sodium Level 142 MMOL/L (136-145) Potassium Level 4.1 MMOL/L (3.5-5.1) Chloride Level 106 MMOL/L (98-107) Carbon Dioxide Level 31 MMOL/L (21-32) Anion Gap 5 mmol/L (5-15) Blood Urea Nitrogen 14 mg/dL (7-18) Creatinine 0.8 MG/DL (0.55-1.30) Estimat Glomerular Filtration Rate > 60 mL/min (>60) Glucose Level 79 MG/DL (74-106) Calcium Level 8.5 MG/DL (8.5-10.1) Phosphorus Level 3.6 MG/DL (2.5-4.9) Magnesium Level 2.0 MG/DL (1.8-2.4) Total Bilirubin 0.6 MG/DL (0.2-1.0) Aspartate Amino Transf (AST/SGOT) 21 U/L (15-37) Alanine Aminotransferase (ALT/SGPT) 27 U/L (12-78) Alkaline Phosphatase 58 U/L (46-116) Total Protein 6.4 G/DL (6.4-8.2) Albumin 3.0 G/DL (3.4-5.0) L Globulin 3.4 g/dL Albumin/Globulin Ratio 0.9 (1.0-2.7) L Height (Feet): 5 Height (Inches): 10.00 Weight (Pounds): 180 Medications Current Medications Medications (Trade) Dose Ordered Sig/Tammy Route PRN Reason Start Time Stop Time Status Last Admin Dose Admin Acetaminophen (Tylenol) 650 mg Q4H PRN ORAL fever 09/28/17 16:00 10/28/17 15:59 Al Hydroxide/Mg Hydroxide (Mylanta II) 30 ml Q6H PRN ORAL dyspepsia 09/28/17 16:00 10/28/17 15:59 Amlodipine Besylate (Norvasc) 2.5 mg DAILY ORAL 09/29/17 09:00 10/29/17 08:59 Benztropine Mesylate (Cogentin) 2 mg TWICE A DAY ORAL 09/28/17 18:00 10/28/17 17:59 Dextrose (Dextrose 50%) STAT PRN IV Hypoglycemia 09/28/17 16:00 10/28/17 15:59 Divalproex Sodium (Depakote ER) 1,000 mg EVERY 12 HOURS ORAL 09/30/17 21:00 10/30/17 20:59 Insulin Aspart (NovoLOG) BEFORE MEALS AND HS SUBQ 09/28/17 17:00 10/28/17 16:59 09/29/17 22:00 Lorazepam (Ativan 2mg/ml 1ml) 0.5 mg Q4H PRN IV For Anxiety 09/28/17 16:00 10/05/17 15:59 09/29/17 22:20 Morphine Sulfate (Morphine Sulfate) 1 mg Q4H PRN IVP Moderate to Severe Pain 09/28/17 16:30 10/05/17 16:29 09/29/17 12:48 Ondansetron HCl (Zofran) 4 mg Q6H PRN IVP Nausea & Vomiting 09/28/17 16:00 10/28/17 15:59 Pantoprazole (Protonix) 40 mg Q12HR ORAL 09/28/17 21:00 10/28/17 20:59 09/28/17 20:47 Polyethylene Glycol (Miralax) 17 gm HSPRN PRN ORAL Constipation 09/28/17 16:30 10/28/17 16:29 Risperidone (RisperDAL) 2 mg BEDTIME ORAL 09/30/17 21:00 10/30/17 20:59 Rivaroxaban (Xarelto) 20 mg QPM ORAL 09/30/17 16:30 10/30/17 16:29 Zolpidem Tartrate (Ambien) 5 mg HSPRN PRN ORAL Insomnia 09/28/17 16:00 10/05/17 15:59 Assessment/Plan Problem List: (1) Schizophrenia ICD Codes: F20.9 - Schizophrenia, unspecified SNOMED: 04860013, 436932456 (2) Bronchitis ICD Codes: J40 - Bronchitis, not specified as acute or chronic SNOMED: 98159457 (3) Methamphetamine abuse ICD Codes: F15.10 - Other stimulant abuse, uncomplicated SNOMED: 383378147 (4) Pneumonia ICD Codes: J18.9 - Pneumonia, unspecified organism SNOMED: 268368313 Assessment/Plan respiratory treatment titrate fi92 psych evaluation NANCY BADILLO Sep 30, 2017 16:09
--- NOTE | 2017-09-30 18:00 | Consultation ---
DATE OF CONSULTATION: 09/29/2017 HISTORY: This is a 67-year-old male with a history of schizophrenia who was brought in due to behavior issues. The EMS stated the patient has suicidal and homicidal ideation. During the evaluation, the patient presented with disorganized speech and behavior, delusional, not engaged during evaluation. He stated that he is going to kill another resident. The patient was brought in on 5150. PAST PSYCHIATRIC HISTORY: He has a history of schizophrenia and several psychiatric hospitalization. PAST MEDICAL HISTORY: History of headaches, gastritis, conjunctivitis, hernia, and pneumonia. ALLERGIES: Fluphenazine, , and ibuprofen. SUBSTANCE ABUSE HISTORY: The patient has extensive history of substance use disorder including opiates and methamphetamine. MENTAL STATUS EXAMINATION: The patient is alert and oriented times self and place. Mood is agitated. Affect is flat. Thought process is disorganized. Thought content, positive for delusions. Insight and judgment, non-existent. ASSESSMENT: AXIS I Schizophrenia. AXIS II Deferred. AXIS III As above. AXIS IV Low. AXIS V Global assessment of functioning is 20. PLAN: 1. We will start the patient on Depakote 1000 at bedtime and risperidone 2 at bedtime. 2. We will continue to follow and readjust the medications. Jose Rosenberg M.D. DR: LÓPEZ JOB#: [id number] CC:
[2017-09-30] MEDS: Depakote ER 500mg tab ORAL SCH (20:42)
[2017-10-01 04:00] VITALS: BP 127/82
[2017-10-01] MEDS: NovoLOG Insulin Flexpen SUBQ SCH ×4 (06:30→19:53)
[2017-10-01 08:31] VITALS: BP 94/55
[2017-10-01] MEDS: Benztropine 1mg tab ORAL SCH ×2 (09:00→17:03)
[2017-10-01] MEDS: Depakote ER 500mg tab ORAL SCH ×3 (09:00→19:50)
[2017-10-01] MEDS: Xarelto 10mg tab ORAL SCH ×2 (09:00→17:03)
[2017-10-01 12:08] VITALS: BP 133/90
--- NOTE | 2017-10-01 15:37 | Pulmonology Progress Note ---
Assessment/Plan Problems: (1) Acute delirium (2) Schizophrenia (3) Bronchitis (4) Methamphetamine abuse Assessment/Plan feeling better psych saw the patient [facility] with new psych meds. Subjective ROS Limited/Unobtainable: No Constitutional: Reports: no symptoms HEENT: Repors: no symptoms Respiratory: Reports: no symptoms Allergies: Coded Allergies: FLUPHENAZINE (Unverified Allergy, Unknown, 07/06/15) FLUPHENAZINE ENANTHATE (Verified Allergy, Unknown, 08/10/16) FLUPHENAZINE HCL (Verified Allergy, Unknown, 08/10/16) HALOPERIDOL (Verified Allergy, Unknown, 08/10/16) HALOPERIDOL LACTATE (Verified Allergy, Unknown, 11/18/14) IBUPROFEN (Verified Allergy, Unknown, 11/18/14) NIACIN (Unverified Allergy, Unknown, 07/06/15) Objective Last 24 Hour Vital Signs Date Time Temp Pulse Resp B/P (MAP) Pulse Ox O2 Delivery O2 Flow Rate FiO2 10/01/17 12:08 98.7 89 18 133/90 98 Room Air 98.7 10/01/17 08:31 98.6 72 18 94/55 96 Room Air 98.6 10/01/17 04:00 98 Room Air 10/01/17 04:00 98.6 113 20 127/82 98 98.6 10/01/17 00:00 97 Room Air 09/30/17 23:55 98.6 112 20 120/79 97 98.6 09/30/17 20:00 96 Room Air 09/30/17 20:00 98.9 116 21 124/91 96 98.9 09/30/17 16:00 97.6 98 19 139/86 99 97.6 Intake and Output 09/30/17 10/01/17 19:00 07:00 Intake Total 1150 ml Balance 1150 ml Intake Oral 1150 ml # Voids 6 3 Objective General Appearance: WD/WN HEENT: normocephalic, atraumatic Respiratory/Chest: chest wall non-tender, lungs clear, normal breath sounds Cardiovascular: normal peripheral pulses, normal rate Abdomen: normal bowel sounds, no organomegaly Genitourinary: normal external genitalia Extremities: no cyanosis Skin: no rash Neurologic/Psychiatric: tallow pumper II-XII grossly normal Current Medications Medications (Trade) Dose Ordered Sig/Tammy Route PRN Reason Start Time Stop Time Status Last Admin Dose Admin Acetaminophen (Tylenol) 650 mg Q4H PRN ORAL fever 09/28/17 16:00 10/28/17 15:59 Al Hydroxide/Mg Hydroxide (Mylanta II) 30 ml Q6H PRN ORAL dyspepsia 09/28/17 16:00 10/28/17 15:59 Amlodipine Besylate (Norvasc) 2.5 mg DAILY ORAL 09/29/17 09:00 10/29/17 08:59 Benztropine Mesylate (Cogentin) 2 mg TWICE A DAY ORAL 09/28/17 18:00 10/28/17 17:59 Dextrose (Dextrose 50%) STAT PRN IV Hypoglycemia 09/28/17 16:00 10/28/17 15:59 Divalproex Sodium (Depakote ER) 1,000 mg EVERY 12 HOURS ORAL 09/30/17 21:00 10/30/17 20:59 10/01/17 11:34 Insulin Aspart (NovoLOG) BEFORE MEALS AND HS SUBQ 09/28/17 17:00 10/28/17 16:59 09/29/17 22:00 Lorazepam (Ativan 2mg/ml 1ml) 0.5 mg Q4H PRN IV For Anxiety 09/28/17 16:00 10/05/17 15:59 09/29/17 22:20 Morphine Sulfate (Morphine Sulfate) 1 mg Q4H PRN IVP Moderate to Severe Pain 09/28/17 16:30 10/05/17 16:29 09/29/17 12:48 Ondansetron HCl (Zofran) 4 mg Q6H PRN IVP Nausea & Vomiting 09/28/17 16:00 10/28/17 15:59 Pantoprazole (Protonix) 40 mg Q12HR ORAL 09/28/17 21:00 10/28/17 20:59 09/28/17 20:47 Polyethylene Glycol (Miralax) 17 gm HSPRN PRN ORAL Constipation 09/28/17 16:30 10/28/17 16:29 Risperidone (RisperDAL) 2 mg BEDTIME ORAL 09/30/17 21:00 10/30/17 20:59 Rivaroxaban (Xarelto) 20 mg QPM ORAL 09/30/17 16:30 3/28/18 16:29 Zolpidem Tartrate (Ambien) 5 mg HSPRN PRN ORAL Insomnia 09/28/17 16:00 10/05/17 15:59 NANCY BDAILLO Oct 01, 2017 15:37
[2017-10-01] MEDS ORDERED: DEPAKOTE ER500 MG ORAL (15:39)
[2017-10-01] MEDS ORDERED: RISPERDAL2 MG ORAL (15:40)
--- NOTE | 2017-10-01 15:45 | Pulmonology Progress Note ---
Assessment/Plan Problems: (1) Acute delirium (2) Schizophrenia (3) Bronchitis (4) Methamphetamine abuse Assessment/Plan feeling better psych saw the patient no more pschiatric episode Subjective ROS Limited/Unobtainable: No Interval Events: 09/30 late note Allergies: Coded Allergies: FLUPHENAZINE (Unverified Allergy, Unknown, 07/06/15) FLUPHENAZINE ENANTHATE (Verified Allergy, Unknown, 08/10/16) FLUPHENAZINE HCL (Verified Allergy, Unknown, 08/10/16) HALOPERIDOL (Verified Allergy, Unknown, 08/10/16) HALOPERIDOL LACTATE (Verified Allergy, Unknown, 11/18/14) IBUPROFEN (Verified Allergy, Unknown, 11/18/14) NIACIN (Unverified Allergy, Unknown, 07/06/15) Objective Last 24 Hour Vital Signs Date Time Temp Pulse Resp B/P (MAP) Pulse Ox O2 Delivery O2 Flow Rate FiO2 10/01/17 12:08 98.7 89 18 133/90 98 Room Air 98.7 10/01/17 08:31 98.6 72 18 94/55 96 Room Air 98.6 10/01/17 04:00 98 Room Air 10/01/17 04:00 98.6 113 20 127/82 98 98.6 10/01/17 00:00 97 Room Air 09/30/17 23:55 98.6 112 20 120/79 97 98.6 09/30/17 20:00 96 Room Air 09/30/17 20:00 98.9 116 21 124/91 96 98.9 09/30/17 16:00 97.6 98 19 139/86 99 97.6 Intake and Output 09/30/17 10/01/17 19:00 07:00 Intake Total 1150 ml Balance 1150 ml Intake Oral 1150 ml # Voids 6 3 Objective General Appearance: WD/WN HEENT: normocephalic, atraumatic Respiratory/Chest: chest wall non-tender, lungs clear, normal breath sounds Cardiovascular: normal peripheral pulses, normal rate Abdomen: normal bowel sounds, no organomegaly Genitourinary: normal external genitalia Extremities: no cyanosis Skin: no rash Neurologic/Psychiatric: dedicated owner operator II-XII grossly normal Current Medications Medications (Trade) Dose Ordered Sig/Tammy Route PRN Reason Start Time Stop Time Status Last Admin Dose Admin Acetaminophen (Tylenol) 650 mg Q4H PRN ORAL fever 09/28/17 16:00 10/28/17 15:59 Al Hydroxide/Mg Hydroxide (Mylanta II) 30 ml Q6H PRN ORAL dyspepsia 09/28/17 16:00 10/28/17 15:59 Amlodipine Besylate (Norvasc) 2.5 mg DAILY ORAL 09/29/17 09:00 10/29/17 08:59 Benztropine Mesylate (Cogentin) 2 mg TWICE A DAY ORAL 09/28/17 18:00 10/28/17 17:59 Dextrose (Dextrose 50%) STAT PRN IV Hypoglycemia 09/28/17 16:00 10/28/17 15:59 Divalproex Sodium (Depakote ER) 1,000 mg EVERY 12 HOURS ORAL 09/30/17 21:00 10/30/17 20:59 10/01/17 11:34 Insulin Aspart (NovoLOG) BEFORE MEALS AND HS SUBQ 09/28/17 17:00 10/28/17 16:59 09/29/17 22:00 Lorazepam (Ativan 2mg/ml 1ml) 0.5 mg Q4H PRN IV For Anxiety 09/28/17 16:00 10/05/17 15:59 09/29/17 22:20 Morphine Sulfate (Morphine Sulfate) 1 mg Q4H PRN IVP Moderate to Severe Pain 09/28/17 16:30 10/05/17 16:29 09/29/17 12:48 Ondansetron HCl (Zofran) 4 mg Q6H PRN IVP Nausea & Vomiting 09/28/17 16:00 10/28/17 15:59 Pantoprazole (Protonix) 40 mg Q12HR ORAL 09/28/17 21:00 10/28/17 20:59 09/28/17 20:47 Polyethylene Glycol (Miralax) 17 gm HSPRN PRN ORAL Constipation 09/28/17 16:30 10/28/17 16:29 Risperidone (RisperDAL) 2 mg BEDTIME ORAL 09/30/17 21:00 10/30/17 20:59 Rivaroxaban (Xarelto) 20 mg QPM ORAL 09/30/17 16:30 10/30/17 16:29 Zolpidem Tartrate (Ambien) 5 mg HSPRN PRN ORAL Insomnia 09/28/17 16:00 10/05/17 15:59 NANCY BADILLO Oct 01, 2017 15:45
[2017-10-01 16:02] VITALS: BP 129/89
--- NOTE | 2017-10-01 17:49 | General Progress Note ---
Assessment/Plan Status: progressing Assessment/Plan AXIS I Schizophrenia. chronic paranoid type AXIS II Deferred. AXIS III encephalopathy AXIS IV Low. AXIS V Global assessment of functioning is 20. PLAN: 1. We will start the patient on Depakote 1000 at bedtime and risperidone 2mg qhs 2 at bedtime. 2. We will continue to follow and readjust the medications. 4. the pt is noncompliant Subjective Date patient seen: Oct 01, 2017 Neurologic/Psychiatric: Reports: anxiety, depressed, emotional problems Allergies: Coded Allergies: FLUPHENAZINE (Unverified Allergy, Unknown, 07/06/15) FLUPHENAZINE ENANTHATE (Verified Allergy, Unknown, 08/10/16) FLUPHENAZINE HCL (Verified Allergy, Unknown, 08/10/16) HALOPERIDOL (Verified Allergy, Unknown, 08/10/16) HALOPERIDOL LACTATE (Verified Allergy, Unknown, 11/18/14) IBUPROFEN (Verified Allergy, Unknown, 11/18/14) NIACIN (Unverified Allergy, Unknown, 07/06/15) Objective Last 24 Hour Vital Signs Date Time Temp Pulse Resp B/P (MAP) Pulse Ox O2 Delivery O2 Flow Rate FiO2 10/01/17 16:02 98.1 96 19 129/89 98 Room Air 98.1 10/01/17 12:08 98.7 89 18 133/90 98 Room Air 98.7 10/01/17 08:31 98.6 72 18 94/55 96 Room Air 98.6 10/01/17 04:00 98 Room Air 10/01/17 04:00 98.6 113 20 127/82 98 98.6 10/01/17 00:00 97 Room Air 09/30/17 23:55 98.6 112 20 120/79 97 98.6 09/30/17 20:00 96 Room Air 09/30/17 20:00 98.9 116 21 124/91 96 98.9 Intake and Output 09/30/17 10/01/17 19:00 07:00 Intake Total 1150 ml Balance 1150 ml Intake Oral 1150 ml # Voids 6 3 Height (Feet): 5 Height (Inches): 10.00 Weight (Pounds): 180 General Appearance: no apparent distress, alert, confused, agitated Neurologic: alert, responsive, depressed affect Jose Rosenberg M.D. Oct 01, 2017 17:49
--- NOTE | 2017-10-01 17:50 | Psych Consult Progress Note ---
Psych Consult Progress Note Consult 09/30/17 AXIS I Schizophrenia. AXIS II Deferred. AXIS III As above. AXIS IV Low. AXIS V Global assessment of functioning is 20. PLAN: 1. We will start the patient on Depakote 1000 at bedtime and risperidone 2 at bedtime. 2. We will continue to follow and readjust the medications. Vital Signs Last 24 Hour Vital Signs Date Time Temp Pulse Resp B/P (MAP) Pulse Ox O2 Delivery O2 Flow Rate FiO2 10/01/17 16:02 98.1 96 19 129/89 98 Room Air 98.1 10/01/17 12:08 98.7 89 18 133/90 98 Room Air 98.7 10/01/17 08:31 98.6 72 18 94/55 96 Room Air 98.6 10/01/17 04:00 98 Room Air 10/01/17 04:00 98.6 113 20 127/82 98 98.6 10/01/17 00:00 97 Room Air 09/30/17 23:55 98.6 112 20 120/79 97 98.6 09/30/17 20:00 96 Room Air 09/30/17 20:00 98.9 116 21 124/91 96 98.9 Medications Current Medications Medications (Trade) Dose Ordered Sig/Tammy Route PRN Reason Start Time Stop Time Status Last Admin Dose Admin Acetaminophen (Tylenol) 650 mg Q4H PRN ORAL fever 09/28/17 16:00 10/28/17 15:59 Al Hydroxide/Mg Hydroxide (Mylanta II) 30 ml Q6H PRN ORAL dyspepsia 09/28/17 16:00 10/28/17 15:59 Amlodipine Besylate (Norvasc) 2.5 mg DAILY ORAL 09/29/17 09:00 10/29/17 08:59 Benztropine Mesylate (Cogentin) 2 mg TWICE A DAY ORAL 09/28/17 18:00 10/28/17 17:59 10/01/17 17:03 Dextrose (Dextrose 50%) STAT PRN IV Hypoglycemia 09/28/17 16:00 10/28/17 15:59 Divalproex Sodium (Depakote ER) 1,000 mg EVERY 12 HOURS ORAL 09/30/17 21:00 10/30/17 20:59 10/01/17 11:34 Insulin Aspart (NovoLOG) BEFORE MEALS AND HS SUBQ 09/28/17 17:00 10/28/17 16:59 09/29/17 22:00 Lorazepam (Ativan 2mg/ml 1ml) 0.5 mg Q4H PRN IV For Anxiety 09/28/17 16:00 10/05/17 15:59 09/29/17 22:20 Morphine Sulfate (Morphine Sulfate) 1 mg Q4H PRN IVP Moderate to Severe Pain 09/28/17 16:30 10/05/17 16:29 09/29/17 12:48 Ondansetron HCl (Zofran) 4 mg Q6H PRN IVP Nausea & Vomiting 09/28/17 16:00 10/28/17 15:59 Pantoprazole (Protonix) 40 mg Q12HR ORAL 09/28/17 21:00 10/28/17 20:59 09/28/17 20:47 Polyethylene Glycol (Miralax) 17 gm HSPRN PRN ORAL Constipation 09/28/17 16:30 10/28/17 16:29 Risperidone (RisperDAL) 2 mg BEDTIME ORAL 09/30/17 21:00 10/30/17 20:59 Rivaroxaban (Xarelto) 20 mg QPM ORAL 09/30/17 16:30 10/30/17 16:29 10/01/17 17:03 Zolpidem Tartrate (Ambien) 5 mg HSPRN PRN ORAL Insomnia 09/28/17 16:00 10/05/17 15:59 Problems: (1) Atypical chest pain Status: Acute (2) Abdominal pain Status: Acute (3) Headache Status: Acute (4) Opioid dependence Status: Acute (5) Acute gastritis Status: Acute (6) Abdominal pain Status: Acute (7) Chest pain Status: Acute (8) Atypical chest pain Status: Acute (9) Headache Status: Acute (10) Opioid dependence Status: Acute (11) Chest pain Status: Acute (12) Conjunctivitis Status: Acute (13) Abdominal pain Status: Acute (14) Drug seeking behavior Status: Acute (15) Acute gastritis Status: Acute (16) Opioid dependence Status: Acute (17) Acute gastritis Status: Acute (18) Drug seeking behavior Status: Acute (19) Alcohol abuse Status: Acute (20) Opioid dependence Status: Acute (21) headache Status: Acute (22) 10028 Status: Acute (23) Abdominal pain Status: Acute (24) Opioid dependence Status: Acute (25) Alcohol intoxication Status: Acute (26) Alcohol withdrawal Status: Acute (27) Alcohol abuse Status: Acute (28) Chest pain Status: Acute (29) Chest pain Status: Acute (30) Tobacco abuse counseling Status: Acute (31) Tobacco abuse Status: Acute (32) Abdominal pain Status: Acute (33) Abdominal pain Status: Acute (34) Hiatal hernia Status: Acute (35) Hiatal hernia Status: Acute (36) Tobacco abuse counseling Status: Acute (37) Hiatal hernia Status: Acute (38) Hiatal hernia Status: Acute (39) Hiatal hernia Status: Acute (40) Abdominal pain Status: Acute (41) Abdominal pain Status: Acute (42) Hiatal hernia Status: Acute (43) Hiatal hernia Status: Acute (44) Abdominal pain Status: Acute (45) Chest pain Status: Acute (46) Hiatal hernia Status: Acute (47) Tobacco abuse Status: Acute (48) ACS (acute coronary syndrome) Status: Acute (49) Upper respiratory infection Status: Acute (50) Upper respiratory symptom Status: Acute (51) Upper respiratory infection Status: Acute (52) Chest wall pain Status: Acute (53) Chest wall pain Status: Acute (54) Chest pain Status: Acute (55) Upper respiratory infection Status: Acute (56) Atypical chest pain Status: Acute (57) GERD (gastroesophageal reflux disease) Status: Acute (58) Atypical chest pain Status: Acute (59) Chest wall pain Status: Acute (60) Upper respiratory infection Status: Acute (61) Dog bite of finger Status: Acute (62) Dog bite of finger Status: Acute (63) Conjunctivitis Status: Acute (64) Chest wall pain Status: Acute (65) Chest wall pain Status: Acute (66) Chest wall pain Status: Acute (67) Vomiting Status: Acute (68) Dizziness Status: Acute (69) Vertigo Status: Acute (70) Headache Status: Acute (71) Encounter for generalized patient complaints Status: Acute (72) Episode of generalized weakness Status: Acute (73) Behavioral change Status: Acute (74) Suicidal ideation Status: Acute (75) Schizophrenia Status: Acute (76) Bronchitis Status: Acute (77) Pneumonia Status: Acute (78) Methamphetamine abuse Status: Acute (79) Opioid dependence Status: Acute (80) Acute delirium Farhadi,Pantea M.D. Oct 01, 2017 17:50
[2017-10-01 20:00] VITALS: BP 144/94
--- NOTE | 2017-10-03 10:47 | Discharge Summary ---
Discharge Summary Hospital Course Date of Admission Sep 27, 2017 at 08:07 Date of Discharge Oct 01, 2017 at 23:40 Admitting Diagnosis COPD, PSYCHOSIS HPI Rodney Lopez is a 67 year old male who was admitted on Sep 27, 2017 at 08:07 for Chronic Obstructive Pulmonary Disease, Psychosis Hospital Course [id number] Discharge Discharge Disposition Patient was discharged to [facility] (01) Discharge Diagnoses: Meghan Valverde NP Oct 03, 2017 10:47
--- NOTE | 2017-10-04 04:00 | Discharge Summary 2 SIG ---
DATE OF ADMISSION: 09/27/2017 DATE OF DISCHARGE: 10/01/2017 INSPECTOR BRAKE LINING: Jose Rosenberg M.D. BRIEF HOSPITAL COURSE: The patient is a 67-year-old male with history of schizophrenia and COPD was brought in by EMS from facility after suicidal/homicidal ideation. The patient was very disorganized and not giving clear history, rambling, nonsense. He reportedly told another resident that he was going to kill himself. On evaluation at ED, the patient was noted to be talking to himself. EKG done was in normal sinus rhythm. Blood work showed no l eukocytosis. Urine toxicology screen was negative. He was given Zyprexa. He was referred to [facility] however no bed was available. At ED, he slept through the night however in the morning the patient ran out. [employer] was called. The patient was taken back by [employer] and patient was placed on restraints and given another dose of Ativan and Zyprexa. He was given additional dose of Thorazine. He was then admitted to medical floor where he underwent psychiatric evaluation. He was diagnosed with schizophrenia and was started on Depakote 1000 mg at bedtime and risperidone 2 mg at bedtime. He was provided a sitter for patient's safety. Symptoms improved. He was eventually discharged back to board and care. FINAL DIAGNOSES: 1. Acute delirium. 2. Schizophrenia. 3. Bronchitis. DISPOSITION: The patient was discharged back to board and care. DISCHARGE MEDICATIONS: Refer to medication list. Continue with benztropine, Depakote, risperidone. DISCHARGE INSTRUCTIONS: Followup with PMD in a week. Jered Bhatti M.D. I have been assigned to dictate discharge summary on this account and I was not involved in the patient's management. Meghan Valverde N.P. DR: Bernarda JOB#: [id number] CC: LUMA
== END 2017-10-01 23:40 | disposition home or self-care (01) | DRG 885 ==
LOC: EDBD 22:10 → EMR 22:40 → 4E 09-27 08:07 → EDBEDREQ 09-28 07:18
DX: F20.0 Paranoid schizophrenia (principal); G93.40 Encephalopathy, unspecified; Z78.1 Physical restraint status; F15.10 Other stimulant abuse, uncomplicated; R07.89 Other chest pain; F10.10 Alcohol abuse, uncomplicated; Z76.5 Malingerer [conscious simulation]; K52.9 Noninfective gastroenteritis and colitis, unspecified; R41.0 Disorientation, unspecified; J44.9 Chronic obstructive pulmonary disease, unspecified
CPT/HCPCS: 36415; 80053; 80061; 80307; 80329; 81003; 82962; 83735; 84100; 85025; 93005; 96372; 99284; J1815

== ENCOUNTER 2018-03-12 21:07 | Emergency (ER) | payer OTHER ==
[~2018-03-12] VITALS: Ht 180.3 cm; Wt 68.0 kg
[~2018-03-12 21:07] MED LIST changes: +AMLODIPINE BES2.5 MG ORAL; +BENZTROPINE MESY2 MG ORAL; +DEPAKOTE ER500 MG ORAL; +METFORMIN HCL500 M1 ORAL; +PANTOPRAZOLE SO40 MG ORAL; +RISPERDAL2 MG ORAL; +TRIFLUOPERAZINE5 MG PO; +XARELTO20 MG ORAL; +ZOFRAN8 MG ORAL
[2018-03-12 21:22] VITALS: BP 140/88
[2018-03-12 22:19] VITALS: BP 140/88
--- NOTE | 2018-03-15 15:45 | Emergency Room Report ---
History of Present Illness General Chief Complaint: General Complaint Source: Patient Present Illness Allergies: Coded Allergies: FLUPHENAZINE (Unverified Allergy, Unknown, 03/12/18) FLUPHENAZINE ENANTHATE (Verified Allergy, Unknown, 03/12/18) FLUPHENAZINE HCL (Verified Allergy, Unknown, 03/12/18) HALOPERIDOL (Verified Allergy, Unknown, 03/12/18) HALOPERIDOL LACTATE (Verified Allergy, Unknown, 03/12/18) IBUPROFEN (Verified Allergy, Unknown, 03/12/18) NIACIN (Unverified Allergy, Unknown, 03/12/18) Nursing Documentation-H Past Medical History: No History, Except For Hx Hypertension: Yes Hx Asthma: No Hx Diabetes: No Hx Cancer: Yes - lung ca s/p resection, xrt and chemotherapy Hx Dialysis: No Hx Neurological Problems: Yes - MIGRAINE Hx Cerebrovascular Accident: No Hx Seizures: Yes Hx Concentration Difficulty: Yes Physical Exam Vital Signs Date Time Temp Pulse Resp B/P (MAP) Pulse Ox O2 Delivery O2 Flow Rate FiO2 03/12/18 21:22 98.4 84 16 140/88 96 Room Air 98.4 Medical Decision Making Diagnostic Impression: Primary Impression: Encounter for generalized patient complaints Additional Impression: Problem Last Vital Signs Date Time Temp Pulse Resp B/P (MAP) Pulse Ox O2 Delivery O2 Flow Rate FiO2 03/12/18 22:20 98.4 16 140/88 96 Room Air 98.4 03/12/18 21:22 84 Disposition: LEFT W/OUT BEING SEEN Condition: Unknown Referrals: NOT CHOSEN [facility]/,REFERRING (PCP) Donald Peralta MD Mar 15, 2018 15:45
== END 2018-03-12 22:20 | disposition left against medical advice (07) ==
LOC: EMR 21:45
DX: Z76.89 Persons encountering health services in other specified circumstances (principal); Z53.21 Procedure and treatment not carried out due to patient leaving prior to being seen by health care provider
CPT/HCPCS: 99281

== ENCOUNTER 2018-05-23 01:54 | Emergency (ER) | payer OTHER ==
[~2018-05-23] VITALS: Ht 170.2 cm; Wt 65.8 kg
[2018-05-23 02:10] VITALS: BP 152/78
[2018-05-23] MEDS ORDERED: ZITHROMAX250 MG ORAL (02:39)
[2018-05-23 02:40] VITALS: BP 152/78
--- NOTE | 2018-05-23 02:40 | Emergency Room Report ---
History of Present Illness General Chief Complaint: Upper Respiratory Illness Source: Patient Present Illness HPI Is a 68-year-old male with history of COPD and psych history. He presents with chief complaint of a cough and congestion. Onset for last couple days. No fever chills but no nausea no vomiting. Maria Esther symptom in the past. Denies any complaint. Cough is productive of phlegm. Allergies: Coded Allergies: FLUPHENAZINE (Unverified Allergy, Unknown, 03/12/18) FLUPHENAZINE ENANTHATE (Verified Allergy, Unknown, 03/12/18) FLUPHENAZINE HCL (Verified Allergy, Unknown, 03/12/18) HALOPERIDOL (Verified Allergy, Unknown, 03/12/18) HALOPERIDOL LACTATE (Verified Allergy, Unknown, 03/12/18) IBUPROFEN (Verified Allergy, Unknown, 03/12/18) NIACIN (Unverified Allergy, Unknown, 03/12/18) Patient History Past Medical History: see triage record, old chart reviewed, COPD Past Surgical History: other Pertinent Family History: none Social History: Reports: drug use; Denies: smoking Immunizations: other Reviewed Nursing Documentation: PMH: Agreed; PSxH: Agreed Nursing Documentation-PMH Hx Hypertension: Yes Hx Asthma: No Hx Diabetes: No Hx Cancer: Yes - lung ca s/p resection, xrt and chemotherapy Hx Dialysis: No Hx Neurological Problems: Yes - MIGRAINE Hx Cerebrovascular Accident: No Hx Seizures: Yes Hx Concentration Difficulty: Yes Review of Systems Eye: Denies: eye pain, blurred vision ENT: Denies: ear pain, nose congestion, throat swelling Respiratory: Reports: cough, sputum; Denies: shortness of breath Cardiovascular: Denies: chest pain, palpitations Gastrointestinal: Denies: abdominal pain, diarrhea, nausea, vomiting Musculoskeletal: Denies: back pain, joint pain Skin: Denies: rash Neurological: Denies: headache, numbness Endocrine: Denies: increased thirst, increased urine Hematologic/Lymphatic: Denies: easy bruising All Other Systems: negative except mentioned in HPI Physical Exam Vital Signs Date Time Temp Pulse Resp B/P (MAP) Pulse Ox O2 Delivery O2 Flow Rate FiO2 05/23/18 01:58 97.5 78 16 160/80 96 Room Air 97.5 vitals unremarkable Sp02 EP Interpretation: reviewed, normal General Appearance: well appearing, no apparent distress, alert Head: normocephalic, atraumatic Eyes: bilateral eye PERRL, bilateral eye EOMI ENT: hearing grossly normal, normal pharynx Neck: full range of motion, supple, no meningismus Respiratory: chest non-tender, rhonchi Cardiovascular #1: regular rate, rhythm, no murmur Gastrointestinal: normal bowel sounds, non tender, no mass, no organomegaly, no bruit, non-distended Musculoskeletal: back normal, gait/station normal, normal range of motion Psychiatric: mood/affect normal Skin: warm/dry Medical Decision Making Diagnostic Impression: Primary Impression: Upper respiratory infection Qualified Codes: J06.9 - Acute upper respiratory infection, unspecified Additional Impression: Cocaine abuse ER Course Patient with an upper respiratory infection. Most likely viral in nature. Because of his history of COPD, drug abuse and other medical problem, we'll put him on antibiotics. Last Vital Signs Date Time Temp Pulse Resp B/P (MAP) Pulse Ox O2 Delivery O2 Flow Rate FiO2 05/23/18 02:10 78 16 Room Air 05/23/18 02:10 97.5 152/78 96 97.5 Status: unchanged Disposition: HOME, SELF-CARE Condition: Stable Scripts Azithromycin* (ZITHROMAX*) 250 Mg Tablet 250 MG ORAL DAILY, #6 TAB 0 Refills Take two tables once daily for 1 day, then one tablet once daily for 4 days. Prov: Kareem Newton MD 05/23/18 Referrals: NOT CHOSEN [facility]/,REFERRING (PCP) Patient Instructions: Upper Respiratory Infection, Adult Additional Instructions: Stop using drugs. Follow-up with your doctor in 7 days. Return of worse. Kareem Newton MD May 23, 2018 02:40
== END 2018-05-23 02:45 | disposition home or self-care (01) ==
LOC: EMR 02:32
DX: J06.9 Acute upper respiratory infection, unspecified (principal); F14.10 Cocaine abuse, uncomplicated; Z85.118 Personal history of other malignant neoplasm of bronchus and lung; Z92.21 Personal history of antineoplastic chemotherapy; Z88.8 Allergy status to other drugs, medicaments and biological substances; Z88.6 Allergy status to analgesic agent
CPT/HCPCS: 99282